=== PATIENT | female | born 1950 | race African-American/Black ===

== ENCOUNTER 2018-05-19 18:05 | Emergency (ER) | payer OTHER, MEDICARE ==
[2018-05-19 18:52] LABS: Hemoglobin 10.3 g/dL (12.0-16.0); Lymphocytes 10 % (21-51); MDiff Complete? YES; Mean Corpuscular HGB CONC 31.9 g/dL (32.0-36.0); Mean Corpuscular Hemoglobin 27.9 pg (27.0-31.0); Mean Corpuscular Volume 87.6 fL (78.0-98.0); Mean Platelet Volume 9.3 fL (7.4-10.4); Monocytes 10 % (0-10); Neutrophil 80 % (42-75); Platelet Count 353 thou/uL (130-400); Platelet Morphology Comment Appears Adequate; RBC Distribution Width 13.4 % (11.5-14.5); Red Blood Cell (RBC) Count 3.68 mill/uL (4.20-5.40); White Blood Cell (WBC) Count 9.2 thou/uL (4.8-10.8)
[2018-05-19 19:01] LABS: ALT (SGPT) 12 U/L (8-55); AST (SGOT) 31 U/L (5-34); Albumin 3.5 g/dL (3.4-4.8); Alkaline Phosphatase 136 U/L (40-150); Anion Gap 16 mmol/L (10-20); BUN (Urea Nitrogen) 7 mg/dL (9.8-20.1); Bilirubin, Total 0.5 mg/dL (0.2-1.2); Calc. Creatinine Clearance 0 mL/min (70-130); Calcium 9.2 mg/dL (7.8-10.44); Carbon Dioxide 21 mmol/L (23-31); Chloride 102 mmol/L (98-107); Estimated GFR-MDRD Greater than 90; Globulin 4.4 g/dL (2.4-3.5); Glucose 108 mg/dL (80-115); Potassium 3.8 mmol/L (3.5-5.1); Protein, Total 7.9 g/dL (6.0-8.3); Sodium 135 mmol/L (136-145)
[2018-05-19 19:14] LABS: Lipase Less than 4 U/L (8-78)
--- NOTE | 2018-05-19 20:32 | RAD ---
CHEST ONE VIEW ABDOMEN TWO VIEWS: 05/19/18 HISTORY: Chest and abdomen pain. FINDINGS: The right cardiac marking partially obscured by ill-defined infiltrate at the right base. Small amou nt of pleural fluid also apparent on the right. Left lung is clear. Mediastinum is midline. No evidence of free subdiaphragmatic gas. Gas and stool throughout the colon and rectum. No different ial air fluid levels or radiopaque foreign bodies. Chronic deformity of the pubic symphysis may be r elated to degenerative changes and/or old trauma. IMPRESSION: Nonspecific bowel gas pattern. Right lung base infiltrate and pleural fluid. Possible pneumonia (could cause abdominal pain. Clinica l correlation regarding other signs and symptoms of right lower lobe pneumonitis is required. POS: RODH
== END 2018-05-19 19:56 | disposition home or self-care (01) ==
LOC: SCSER 18:05
DX: R68.81 Early satiety (principal); R91.8 Other nonspecific abnormal finding of lung field; I10 Essential (primary) hypertension; Z87.891 Personal history of nicotine dependence
CPT/HCPCS: 36415; 74022; 80053; 83605; 83690; 84484; 85025; 93005

== ENCOUNTER 2018-05-22 10:57 | Inpatient (IN) | payer OTHER, MEDICARE ==
[2018-05-22] MEDS ORDERED: Ondansetron PF 4 MG/2 ML Vial ONE (11:40)
[2018-05-22 11:43] LABS: Bilirubin Large (Negative); Blood, Urine Trace (Negative); Clarity Slightly Cloudy (Clear); Glucose, Urine (Dipstick) 100 mg/dL (Negative); Leukocyte Trace (Negative); Nitrite Negative (Negative); Protein, Urine (Dipstick) 100 mg/dL (Neg-Trace); pH, Urine 5.5 (5.0-9.0)
[2018-05-22 11:44] LABS: Specific Gravity, Urine 1.023 (1.002-1.036)
[2018-05-22 11:51] LABS: Bacteria/HPF Rare-Few HPF (None Seen); Hyaline Casts/LPF 0-3 HYALINE CAST LPF (0-3 Hyaline); Other Casts/LPF 0-3 FINELY GRAN LPF (0-3 Hyaline); RBC/HPF 0-3 HPF (0-3)
[2018-05-22 11:52] LABS: WBC/HPF 0-3 HPF (0-3)
[2018-05-22 12:09] LABS: Anisocytosis SLIGHT = 6-15 cells (100X) (0-5/hpf); Band 3 % (5-11); Eosinophils 1 % (0-10); Hemoglobin 11.5 g/dL (12.0-16.0); Lymphocytes 7 % (21-51); MDiff Complete? YES; Mean Corpuscular HGB CONC 32.2 g/dL (32.0-36.0); Mean Corpuscular Hemoglobin 28.4 pg (27.0-31.0); Mean Corpuscular Volume 88.4 fL (78.0-98.0); Mean Platelet Volume 8.1 fL (7.4-10.4); Monocytes 6 % (0-10); Neutrophil 83 % (42-75); Platelet Count 390 thou/uL (130-400); Platelet Morphology Comment Appears Adequate; RBC Distribution Width 13.9 % (11.5-14.5); Red Blood Cell (RBC) Count 4.04 mill/uL (4.20-5.40); Target Cells SLIGHT = 2-5 cells (100X) (0-1/hpf); White Blood Cell (WBC) Count 10.4 thou/uL (4.8-10.8)
[2018-05-22 12:18] LABS: ALT (SGPT) 14 U/L (8-55); AST (SGOT) 30 U/L (5-34); Albumin 3.8 g/dL (3.4-4.8); Alkaline Phosphatase 144 U/L (40-150); Anion Gap 19 mmol/L (10-20); BUN (Urea Nitrogen) 11 mg/dL (9.8-20.1); Bilirubin, Total 0.7 mg/dL (0.2-1.2); Calc. Creatinine Clearance 0 mL/min (70-130); Calcium 9.9 mg/dL (7.8-10.44); Carbon Dioxide 21 mmol/L (23-31); Chloride 101 mmol/L (98-107); Estimated GFR-MDRD 74; Globulin 4.8 g/dL (2.4-3.5); Glucose 95 mg/dL (80-115); Protein, Total 8.6 g/dL (6.0-8.3); Sodium 137 mmol/L (136-145)
[2018-05-22 13:25] LABS: Lipase Less than 4 U/L (8-78)
--- NOTE | 2018-05-22 15:04 | CT ---
CT ABDOMEN AND PELVIS PERFORMED WITH CONTRAST ENHANCEMENT: Date: 05/22/18 HISTORY: Abdominal pain. Fullness. Nausea. History of a bladder infection, for which patient has been placed o n Bactrim. FINDINGS: There is a moderate size right-sided pleural effusion with right lower lobe atelectasis. Liver shows multiple liver masses, some of which measure as much as 4.7 cm in size. The spleen is within normal l imits. Pancreas and gallbladder regions are unremarkable. Right and left adrenal glands, and right and left kidneys are normal in size and appearance. Small hy podensity is seen involving the right kidney and probably represents a cyst. There is an aortocaval node seen directly beneath the head of the pancreas, measuring approximately 1 1.0 mm in size. There is also a node directly anterior to the IVC in the abbey region that measures 1 6.0 mm. There is also a soft tissue mass which appears to represent some mesenteric adenopathy, best seen on axial image 42. One of these areas measures 2.6 cm. There is an area of wall thickening of th e ascending colon near the hepatic flexure, which is very suspicious for a colonic mass, best demonst rated on axial image 42. There is some moderate ascites also noted. CT of pelvis was performed with contrast enhancement. Ascites is noted. Within the midline is a mixed but predominantly low attenuation mass. It measures approximately 13.0 cm in AP dimension and transv ersely measures 8.8 cm. It is mainly midline, but if related to an adnexa, would be of right adnexal origin. There is some soft tissue nodularity along the right hemidiaphragm, along the lateral aspect of the right lobe of the liver, very suspicious for peritoneal seeding. IMPRESSION: 1. Constellation of findings. There are multiple liver masses most compatible with metastatic diseas e. There is a colonic mass involving the right colon near the hepatic flexure and adjacent adenopathy just medial to this, also adenopathy in the aortocaval and more in the periportal or peripancreatic region. There is also evidence of seeding of the peritoneum with nodular masses, best demonstrated al omar the right hemidiaphragm and ascites. All these findings would point to a probable colonic maligna ncy. The one unusual feature is there is a large low attenuation mass within the pelvis measuring 9.0 x 13.0 cm, which could represent some type of peritoneal seeding from colon cancer, but also could p ossibly be related to some type of ovarian malignancy. 2. Right-sided pleural effusion with right lower lobe atelectasis. Findings telephone to Dr. Hamilton. CODE CR. POS: JOSE RAMON
[2018-05-22] MEDS ORDERED: Iopamidol 370 76% 100 ML VIAL ONE (15:43)
[2018-05-22 16:37] VITALS: BMI 28.0
[2018-05-22] MEDS ORDERED: Acetaminophen 325 MG TAB PO PRN (17:10)
[2018-05-22] MEDS ORDERED: Sodium Chloride 0.9% 500 ML IV SCH (17:15)
[2018-05-22] MEDS: Sodium Chloride 0.9% 1,000 ML IV SCH (18:01)
[2018-05-22] MEDS ORDERED: GoLYTELY 4,000 ml Bottle PO SCH (21:00)
--- NOTE | 2018-05-22 22:37 | CON ---
DATE OF CONSULTATION: 05/22/2018 REASON FOR CONSULTATION: Abnormal GI imaging with possible metastatic disease to the liver. CONSULTING PHYSICIAN: Neville Plaza MD. HISTORY OF PRESENT ILLNESS: The patient is a 67-year-old female with a past medical history of hypertension, presenting with complaints of early satiety and anorexia. Approximately 2 weeks ago, her brother was diagnosed with colon cancer and since that time, the patient has had exhibited significant anxiety towards her brother's healthcare and her own. This prompted her to visit her primary care physician who underwent a wellness check and as part of that wellness check had a fecal occult blood test that was positive. She was originally scheduled for colonoscopy for further evaluation of this, but over the course of the last 2 weeks exhibited increased early satiety characterized as the inability to tolerate increasing amounts of food as well as increased anorexia, characterized by decreased appetite. Per patient, she said she lost approximately seven 7 pounds over the last 1 to 2 months in association with this anorexia. Otherwise she denies any nausea, vomiting, fevers, chills, shortness of breath, GI bleeding or change in her bowel habits. Upon admission to the [facility], she was noted to have a CT scan that was concerning for possible metastatic disease and was ultimately admitted to the hospital for further evaluation. REVIEW OF SYSTEMS: A 10-category review of systems was obtained with all responses negative except for the pertinent positives as listed in HPI. PAST MEDICAL HISTORY: As per HPI. PAST SURGICAL HISTORY: None. FAMILY HISTORY: She states that her brother was recently diagnosed with stomach cancer, but denies any history of colon polyps or colon malignancies within the family. SOCIAL HISTORY: Denies tobacco, alcohol, or illicit drug use, but quit smoking approximately 2 weeks ago. OUTPATIENT MEDICATIONS: 1. Amlodipine 5 mg daily. 2. Levofloxacin 750 mg daily. ALLERGIES: NO KNOWN DRUG ALLERGIES. PHYSICAL EXAMINATION: VITAL SIGNS: Temperature 98.2, pulse 111, blood pressure 140/67, respiratory rate 16, saturating 96% on room air. GENERAL: The patient was lying in bed, in no acute distress. Alert and oriented x4. HEENT: Normocephalic, atraumatic. NECK: Supple with no scleral icterus or JVD noted. CARDIOVASCULAR: Tachycardic rate, but regular rhythm. No discernible murmurs, gallops, or rubs. RESPIRATORY: Clear to auscultation bilaterally with no discernible wheezes or rales. ABDOMEN: Normoactive bowel sounds. Soft, nontender, nondistended. EXTREMITIES: No cyanosis, clubbing, or edema. LABORATORY DATA: CBC with a white blood cell count of 10.4, hemoglobin 11.5, hematocrit 35.7, platelets 390. Chemistry with a sodium of 137, potassium 4, chloride 101, CO2 of 21, BUN 11, creatinine 0.92, glucose 95, AST 30, ALT 14, alkaline phosphatase 144, total bilirubin 0.7, albumin 3.8. IMAGING DATA: CT of the abdomen and pelvis was obtained on May 22, 2018, which showed a moderate-sized right-sided pleural effusion. The liver also showed multiple metastases with an enlarged aortocaval lymph node and a soft tissue mass, which could represent mesenteric adenopathy. Colonic thickening was seen in the ascending colon at the approximate location of the hepatic flexure and this was associated with moderate ascites as well as peritoneal contour irregularities concerning for possible peritoneal seeding. ASSESSMENT AND PLAN: The patient is a 67-year-old female with past medical history of hypertension, presenting with complaints of early satiety and abnormal gastrointestinal imaging concerning for metastatic disease from a gastrointestinal malignancy. Metastatic disease from unknown primary. The patient is presenting with a 2-week history of increased early satiety, anorexia, and a recent family history for the diagnosis of gastric cancer, where her brother was diagnosed again weeks ago. Upon evaluation in the ER, she was noted to have no significant serological abnormalities, but the CT of the abdomen and pelvis showed multiple metastases within the liver, possible peritoneal seeding and within the surrounding lymph nodes again consistent with metastatic disease. At this time, there is no true etiology for these metastases, but with the increased thickening of the ascending colon around the hepatic flexure, a colonic neoplasm is likely. However, given her recent family history of gastric cancer, this cannot be ruled out at this time either. RECOMMENDATIONS: 1. We would place the patient on a clear liquid diet with GoLYTELY prep in anticipation for procedures tomorrow. 2. We would make the patient n.p.o. at midnight in preparation for procedures tomorrow. 3. We will plan for both EGD and colonoscopy tomorrow for intraluminal evaluation of a possible GI malignancy. 4. Further recommendations to follow endoscopic intervention. 5. We will continue to follow, please call with any questions. Job ID: [id number]
--- NOTE | 2018-05-23 00:28 | HP ---
CHIEF COMPLAINT: Early satiety. HISTORY OF PRESENT ILLNESS: This patient is a 67-year-old female, who has a history of some mild hypertension, but otherwise no significant past medical history, who presented to the [facility] Emergency Room. The patient has had some problems with early satiety over the last several weeks, getting to the point where she has had no ability to eat. She has had some nausea and reports that she has had about a 7-pound weight loss over those last couple of weeks. She has seen her PCP and was originally diagnosed with urinary tract infection. Subsequently followed up and was thought she had some pneumonia. Today, she presented to the [facility] Emergency Room where she had workup including a CT scan revealing multiple lesions within the liver and the pelvis as well as the diaphragm. The patient reports that she has never had a screening colonoscopy, although she has been getting a mammogram. She also reports that she had previously had Hemoccult screening and recently had a followup Hemoccult straining, which turned out to be positive and there was anticipation of her having a colonoscopy next week. REVIEW OF SYSTEMS: All other systems were reviewed and all pertinent positives and negatives noted in the history of present illness. Specifically, the patient does report that she has had no abdominal pain and she has had fairly regular bowel movement in spite of not being able to eat much at all. PAST MEDICAL HISTORY: Hypertension. PAST SURGICAL HISTORY: None. FAMILY HISTORY: She has a brother who had stomach cancer, a brother who had lung cancer, a brother who had leukemia, a sister with breast cancer, and a mother with ovarian cancer. SOCIAL HISTORY: The patient is a nonsmoker, although she was formally a smoker , she only quit about 2 weeks ago, nondrinker, nondrug user. She is . She is full code and her would be her surrogate decision maker. ALLERGIES: NONE. CURRENT MEDICATIONS: 1. Levaquin 750 mg p.o. daily. 2. Norvasc 5 mg p.o. daily. PHYSICAL EXAMINATION: VITAL SIGNS: Temperature is 98.4, pulse 117, blood pressure 139/81, respirations 18, and O2 saturation 94% on room air. GENERAL APPEARANCE: Age-appropriate female, in no distress. She is awake, alert, oriented, pleasant, and cooperative. HEENT: The patient has PERRL. She has no OP lesion. She has very dry oral mucosa with very dry secretions. HEART: Tachycardic and hyperdynamic, but no murmurs. LUNGS: Clear to auscultation bilaterally with good chest wall expansion and air exchange. ABDOMEN: Soft, nontender, and nondistended. Positive bowel sounds. No masses. No organomegaly. EXTREMITIES: Have no cyanosis, clubbing, or edema. SKIN: Warm and dry. NEUROLOGIC: The patient appears to be fully intact with no focal deficits. LABORATORY DATA AND DIAGNOSTIC STUDIES: White count 10.4, hemoglobin 11.5, platelets 390, 83 neutrophils, 3% bands, 7% lymphocytes. Sodium 137, potassium 4.0, chloride 102, CO2 of 21, BUN 11, creatinine 0.92, and glucose 95. Lactic acid 1.4, AST 30, ALT is 14, alkaline phosphatase 144, lipase less than 4. Urinalysis shows protein, glucose, ketones, large bilirubin, trace leukocyte esterase. CT abdomen shows constellation findings with multiple liver masses, most compatible with metastatic disease, colonic mass involving the right colon near the hepatic flexure, and adjacent adenopathy just medial to this, also adenopathy in the aortocaval and more in the perioral and peripancreatic region, evidence of seeding of the peritoneum with nodular masses best demonstrated among the right hemidiaphragm and ascites all consistent with probable colonic malignancy. There is also a large low-attenuation mass within the pelvis measuring 9 x 13 cm, which could represent some type of peritoneal seeding from colon cancer, but also could possibly be related to an ovarian malignancy, right-sided pleural effusion with right lower lobe atelectasis. IMPRESSION AND PLAN: 1. Dehydration. The patient received some fluid resuscitation. 2. Abdominal mass. The patient has evidence of a new neoplastic process within the abdomen and pelvis, evidence concerning for the possibility of colon cancer. The patient will need endoscopy given her early satiety, may need upper endoscopy as well as a lower endoscopy. We will keep her n.p.o. after midnight and defer to GI for further recommendations. 3. Hypertension. Continue with her usual medications. Job ID: [id number] [facility]
[2018-05-23] MEDS: Sodium Chloride 0.9% 1,000 ML IV SCH ×2 (03:40→17:22)
[2018-05-23] MEDS: Amlodipine 5 MG TAB PO SCH ×2 (08:45→12:24)
[2018-05-23] MEDS ORDERED: Promethazine HCl 25 MG/ML VIAL IM PRN (10:40)
[2018-05-23] MEDS ORDERED: Ondansetron HCl/PF 4 MG/2 ML Vial IVP PRN (10:40)
[2018-05-23] MEDS ORDERED: Promethazine HCl 25 MG/ML VIAL SLOW IVP PRN (10:40)
--- NOTE | 2018-05-23 11:00 | OP ---
DATE OF PROCEDURE: 05/23/2018 PROCEDURE PERFORMED: Esophagogastroduodenoscopy (diagnostic), colonoscopy with biopsy and submucosal injection. INDICATION FOR PROCEDURE: Abnormal GI imaging showing metastatic disease of unknown primary. DESCRIPTION OF PROCEDURE: After the risks and benefits of the procedures were explained to the patient including risks of bleeding, infection, perforation, reactions to anesthesia, aspiration and/or pain, informed consent was obtained. The patient was then taken to the endoscopy suite, where deep sedation was administered via propofol and anesthesia support. Once adequate sedation was achieved, the standard gastroscope was introduced into the mouth with intubation of the esophagus, stomach, and the proximal small intestines with the findings listed below. The patient tolerated this portion of the procedure well with no immediate perioperative complications. Upon conclusion of this phase of the procedure, all equipment was removed from the patient and the bed was rotated to 180 degrees in anticipation of the colonoscopy. An external digital rectal exam was then performed followed by introduction of the standard colonoscope, which was then advanced to the hepatic flexure with further progress impeded by a near obstructive mass that was unable to be traversed with the colonoscope. The quality of the prep was good with a mild amount of adherent stool coating the ma of the colon. The patient tolerated the procedure well with no immediate perioperative complications with this phase of the procedure. Upon conclusion of this, all equipment was removed from the patient and the patient was transferred to PACU in satisfactory condition. EGD FINDINGS: Esophagus: Normal-appearing mucosa was seen in the proximal, mid, and distal esophagus. There was no evidence of erosions, ulcerations, mass, lesions, or active/recent bleeding. Stomach: Normal-appearing mucosa was seen in the gastric cardia, fundus, body, antrum, greater curvature, and incisura. There was no evidence of erosions, ulcerations, mass, lesions, or active/recent bleeding. Duodenum: Normal-appearing mucosa was seen in both the duodenal bulb and second portion of the duodenum. There was no evidence of erosions, ulcerations, mass, lesions, or active/recent bleeding. IMPRESSION: Normal upper endoscopy. COLONOSCOPY FINDINGS: Digital rectal exam, normal external examination. Colon findings: The quality of the prep was good with a moderate amount of adherent stool seen throughout the entire colon, which may have limited visualization somewhat, but was able to be adequately irrigated and suctioned of the mucosa visualized. A large colonic mass was seen at approximately the hepatic flexure that occupied approximately 90% to 95% of the colonic lumen. This mass was unable to be traversed with the standard colonoscope, so further evaluation of the proximal colon was not able to be achieved today. Multiple biopsies were then taken of this mass and placed in a specimen jar for evaluation. A submucosal injection x3 was then placed along the distal end of the mass for further reference for possible surgical intervention. The remaining mucosa seen in the transverse, descending, and sigmoid colons was normal. A moderate amount of small-mouthed diverticula were seen in the distal descending colon and sigmoid colon, but did not exhibit any evidence of active/recent bleeding or colonic narrowing. Normal-appearing mucosa was then seen in the rectum with normal findings on rectal retroflexion. IMPRESSION: 1. A large near obstructive colonic mass was seen at the hepatic flexure occupying 90% to 95% of the colonic lumen, status post multiple biopsies and tattoo placement. 2. [id number] left-sided diverticulosis. RECOMMENDATIONS: 1. We will follow up on the biopsy results with further care guided by pathology report. 2. Would consult Oncology Service for evaluation of this patient with a probable colonic adenocarcinoma primary with metastatic disease. 3. We will place the patient on a full liquid diet for the time being given the near obstructive mass. 4. The patient may need a General Surgery consult based on Oncology's decision to proceed with further therapies as the patient may need a debulking procedure to prevent colonic obstruction (although not currently obstructed). 5. Would consider placing the patient on a stool softener and laxative to help promote movement of stool passes near obstructive mass. We will sign off at this time with further care guided by the pathology report. Please call with any additional questions. Job ID: [id number]
[2018-05-23] MEDS ORDERED: ISOVUE-370 76%-LOCM 1 ML ONE (11:58)
--- NOTE | 2018-05-23 14:01 | CT ---
FExam: Chest CT with contrast HISTORY: Metastatic disease to the liver. COMPARISON: None Correlation: Abdomen pelvis CT 05/22/2018 FINDINGS: No mediastinal mass, lymphadenopathy or hematoma. There is complex fluid attenuation the toro bcarinal region which may be contiguous with the adjacent fluid in the right pleural space. Heart siz e is within normal limits. No symmetric and pericardial fluid. The thoracic aorta and upper abdominal aorta have a normal caliber. No periaortic fat stranding Moderate complex right-sided pleural effusion with consolidation in the right lower lobe likely due t o atelectasis, aspiration or pneumonia. Minimal atelectatic changes in the left lower lobe. No suspic ious masses or nodules in the left or right upper lobe. Incidental blebs/bullae are noted in both upp er lobes. Trachea and central bronchi are patent No axillary lymphadenopathy Multiple hepatic masses as well as mesenteric seeding is once again demonstrated an incompletely eval uated. There is evidence of ascites. No lytic or blastic lesions in the osseous structures. IMPRESSION: Complex right pleural effusion with adjacent lung parenchymal changes as described above. Fluid tracks along the posterior mediastinum is noted in the subcarinal region.
[2018-05-23] MEDS ORDERED: PROPOFOL 200 MG/20 ML VIAL ONE (15:17)
--- NOTE | 2018-05-23 17:11 | PDOC.PN ---
- Subjective Encounter Start Date: 05/23/18 Encounter Start Time: 16:57 Patient lying in bed, she denies chest pain, shortness of breath, abdominal pain , nausea or vomiting. She is tolerating liquid diet for now without complaints. - Objective Resuscitation Status - Order Detail: 05/22/18 17:10 Resuscitation Status Routine Resuscitation Status: FULL: Full Resuscitation MAR Reviewed: Yes Vital Signs & Weight: Vital Signs (12 hours) Temp Pulse Resp BP BP Pulse Ox 05/23/18 15:25 98.2 F 104 H 16 123/66 93 L 05/23/18 14:33 98.0 F 118 H 16 130/70 96 05/23/18 14:04 135/80 05/23/18 13:29 97.6 F 106 H 16 163/78 H 97 05/23/18 12:24 99 143/82 H 05/23/18 12:20 98.0 F 99 16 143/82 H 98 05/23/18 11:31 98.1 F 97 16 139/67 97 05/23/18 11:21 98.2 F 99 16 143/68 H 95 05/23/18 08:00 98.0 F 100 16 141/68 H 94 L Weight Admit Weight 168 lb 4 oz Weight 168 lb 4 oz I&O: 05/22/18 05/23/18 05/24/18 06:59 06:59 06:59 Intake Total 8516 Balance 8516 Result Diagrams: 05/22/18 11:50 05/22/18 11:50 Radiology Reviewed by me: Yes Phys Exam - Physical Examination Constitutional: NAD HEENT: PERRLA, oral pharynx no lesions Neck: supple, full ROM Respiratory: no wheezing, no rales Cardiovascular: RRR, no significant murmur Gastrointestinal: soft, positive bowel sounds Musculoskeletal: no edema, pulses present Neurological: moves all 4 limbs Psychiatric: normal affect, A&O x 3 Skin: no rash, cap refill <2 seconds Dx/Plan (1) Abdominal mass Code(s): R19.00 - INTRA-ABD AND PELVIC SWELLING, MASS AND LUMP, UNSP SITE Status: Acute (2) Hypertension Code(s): I10 - ESSENTIAL (PRIMARY) HYPERTENSION Status: Acute - Plan cont current plan of care * Await biopsies * Oncology following and plan to consult general surgery * Continue home medication amlodipine and monitor vitals * Supportive management for now * She is tolerating liquid diet
--- NOTE | 2018-05-23 17:53 | CON ---
DATE OF CONSULTATION: REASON FOR CONSULTATION: Colon mass. HISTORY OF PRESENT ILLNESS: Ms. Zhang is a pleasant 67-year-old female, who has presented to the emergency room with nausea and weight loss. She also had some pain with urination. In the emergency room, a CT of the abdomen and pelvis was performed. There was a moderate right-sided pleural effusion with right lower lobe atelectasis. There were multiple liver lesions consistent with metastatic disease, the largest measuring 4.7 cm. There was a possible colonic mass near the hepatic flexure. Ascites was noted. There was a low-attenuation mass measuring 13 cm x 8.8 cm in the pelvis was midline, but possibly of right adnexal origin. She was admitted for further workup. GI performed a colonoscopy and EGD today. Her EGD was normal. Her colonoscopy showed a large colonic mass at the hepatic flexure that occupies 90% to 95% of the lumen. Biopsies were taken. We were asked to see the patient regarding the pelvic mass. The patient has a family history of GI tract cancers and ovarian cancer. Her brother was diagnosed with stomach cancer and is currently hospitalized in [place]. Her mother of metastatic ovarian cancer at the age of 87. She states she has pelvic pain when her bladder is full; relieved after voiding and returns once her bladder is full. UA showed no bacteria, but trace leukocyte esterase and bilirubin. She denies any abdominal pain at this time. No chest pain or shortness of breath. PAST MEDICAL HISTORY: Hypertension. PAST SURGICAL HISTORY: None. ALLERGIES: NO KNOWN DRUG ALLERGIES. HOME MEDICATIONS: Norvasc 5 mg daily. FAMILY HISTORY: Brother with stomach cancer. Another brother with lung cancer. She had a brother, who had leukemia. She had a sister with breast cancer in her 60s and a mother, who from ovarian cancer at the age of 87. SOCIAL HISTORY: The patient has a 50-pack year history of smoking, quit 2 weeks ago. No alcohol or illicit drug use. . REVIEW OF SYSTEMS: A 10-point review of systems is negative, except for noted in HPI. PHYSICAL EXAMINATION: VITAL SIGNS: Temperature is 98.2, pulse is 104, respiratory rate 16, blood pressure is 123/66. She is 96% on room air. GENERAL: Well-developed, well-nourished female, in no acute distress. HEENT: Normocephalic and atraumatic. Pupils are equal and reactive to light. NECK: Supple. CV: Regular rate and rhythm. LUNGS: Clear. ABDOMEN: Soft and nontender. Bowel sounds are positive. EXTREMITIES: No clubbing, cyanosis, or edema. SKIN: No rash. HEMATOLOGIC: No petechiae or purpura. NEUROLOGIC: Nonfocal. PSYCHIATRIC: The patient is alert, oriented, and appropriate. PERTINENT LABORATORY DATA AND X-RAYS: Current WBCs 10.4, hemoglobin 11.5, hematocrit 35.7, platelet count is 390,000. She has 83% neutrophils, 3% bands, 7% lymphocytes. Sodium is 137, potassium 4.0, chloride 101, CO2 is 21, BUN is 11, creatinine 0.92, lactic acid is 1.4, calcium 9.9. Total bilirubin is 0.7, AST is 30, ALT is 14, alkaline phosphatase is 144. Serum total protein is 8.6, albumin 3.2, and globulin 4.8. Radiology per HPI. ASSESSMENT: 1. Near obstructing colon mass with liver mets. 2. Large pelvic mass. DISCUSSION: The patient's biopsies on her colon mass are currently pending and likely consistent with adenocarcinoma. We need a biopsy of her pelvic mass to rule out a second primary. I have spoke with Dr. Vernon, who does not feel that she needs a colostomy and/or surgery at this time. He will put a MediPort in tomorrow. Plan a CT-guided biopsy of the pelvic mass. Further recommendations will be based on biopsy results. Thank you for the consult. Job ID: [id number] MTDD
[2018-05-24] MEDS: Sodium Chloride 0.9% 1,000 ML IV SCH ×4 (03:30→22:55)
[2018-05-24 07:56] LABS: INR-International Normal Ratio 1.6; PTT 44.4 SEC (22.9-36.1); Prothrombin Time 18.7 SEC (12.0-14.7)
[2018-05-24] MEDS: Amlodipine 5 MG TAB PO SCH (08:02)
[2018-05-24] MEDS ORDERED: Sodium Bicarbonate 2.5 MEQ/5 ML VIAL ONE (10:01)
[2018-05-24] MEDS ORDERED: Fentanyl 100 MCG/2 ML VIAL ONE ×2 (10:02→13:50)
[2018-05-24] MEDS ORDERED: Midazolam HCl 2 mg/2 ml Vial ONE (10:02)
--- NOTE | 2018-05-24 11:58 | CT ---
FCT-guided pelvic mass biopsy. HISTORY: Cancer with malignant ascites CT-guided pelvic mass biopsy. Informed consent was obtained from the patient. The pelvic mass was localized using CT guidance. The overlying skin was prepped and draped in the usual sterile manner. A 1% lidocaine solution was used t o anesthetize the overlying soft tissues. A small dermatotomy was made. An outer 17-gauge coaxial nee dle was placed into the peritoneal cavity. Initial access resulted in yellowish ascitic fluid being a ccessed. Approximately 15 mL of this was removed and sent for pathologic evaluation. Subsequently the coaxial outer needle was placed into the pelvic mass a total of 5 -3.3 cm 18-gauge core biopsies obt ained. Specimen sent to pathology. Initial evaluation suggested adequate tissue for confirmation of d iagnosis. IMPRESSION: Successful CT-guided pelvic mass biopsy.
[2018-05-24] MEDS ORDERED: Propofol 500 MG/50 ML VIAL ONE (13:50)
[2018-05-24] MEDS ORDERED: Lidocaine 1% (PF) 30 ML VIAL ONE (13:55)
[2018-05-24] MEDS ORDERED: Bupivacaine/Epinephrine 0.25% 30 ML VIAL ONE (13:55)
[2018-05-24] MEDS ORDERED: PROPOFOL 200 MG/20 ML VIAL ONE (13:55)
[2018-05-24] MEDS ORDERED: Lidocaine 2% Jelly 5 ML TUBE ONE (14:23)
[2018-05-24] MEDS ORDERED: Promethazine HCl 25 MG/ML VIAL SLOW IVP PRN (15:06)
[2018-05-24] MEDS ORDERED: Ondansetron HCl/PF 4 MG/2 ML Vial IVP PRN (15:06)
[2018-05-24] MEDS ORDERED: Promethazine HCl 25 MG/ML VIAL IM PRN (15:06)
--- NOTE | 2018-05-24 15:36 | RAD ---
FExam: Chest one view HISTORY:Status post Mediport catheter placement Comparison: 05/19/2018 FINDINGS: Cardiac silhouette:Enlarged Pulmonary vessels: Normal Costophrenic angles: Pleural and parenchymal changes in the right lung base. Trace left-sided effusio n. LUNGS: Atelectasis or airspace disease in the right lower lobe. Pneumothorax: Right-sided Mediport catheter with the distal tip projecting over the superior vena cav a. No pneumothorax. Osseous abnormalities: None IMPRESSION: 1. Right-sided Mediport catheter as above. No pneumothorax 2. Bibasilar pleural effusions, right greater than left. Associated lung parenchymal changes in the r ight lung base may be due to atelectasis, pneumonia. Continued surveillance to resolution.
--- NOTE | 2018-05-24 16:33 | PDOC.PN ---
- Subjective Encounter Start Date: 05/24/18 Encounter Start Time: 08:30 Patient seen and examined for Colon/Pelvic mass. Feels the same. No fever/ chills. No new complaints. No overnight events - Objective Resuscitation Status - Order Detail: 05/22/18 17:10 Resuscitation Status Routine Resuscitation Status: FULL: Full Resuscitation MAR Reviewed: Yes Vital Signs & Weight: Vital Signs (12 hours) Temp Pulse Resp BP Pulse Ox 05/24/18 08:03 98.0 F 92 16 119/75 97 05/24/18 08:02 99 05/24/18 08:00 97 Weight Admit Weight 168 lb 4 oz Weight 168 lb 4 oz I&O: 05/23/18 05/24/18 05/25/18 06:59 06:59 06:59 Intake Total 8516 1940 Balance 8516 1940 Result Diagrams: 05/22/18 11:50 05/22/18 11:50 Phys Exam - Physical Examination Constitutional: NAD Respiratory: no wheezing, no rhonchi Cardiovascular: RRR, no rub Gastrointestinal: soft, non-tender, positive bowel sounds Musculoskeletal: no edema Neurological: moves all 4 limbs Dx/Plan - Plan DVT proph w/SCDs 1. Colon mass/Pelvic mass 2. HTN 3. Dehydation/N/V 4. Diverticulosis 5. Chronic Anemia PLAN: Mediport and CT guided biopsys of Pelvic mass Reduce IVF AM labs Cont other meds as below Review of Systems - Review of Systems Respiratory: negative: Cough, Dry, Shortness of Breath, Hemoptysis, SOB with Excertion, Pleuritic Pain, Sputum, Wheezing Cardiovascular: negative: chest pain, palpitations, orthopnea, paroxysmal nocturnal dyspnea, edema, light headedness, other - Medications/Allergies Allergies/Adverse Reactions: Allergies Allergy/AdvReac Type Severity Reaction Status Date / Time No Known Allergies Allergy Unverified 05/22/18 16:25 Medications: Current Medications Acetaminophen (Tylenol) 650 mg PO Q4H PRN PRN Reason: Headache/Fever/Mild Pain (1-3) Amlodipine Besylate (Norvasc) 5 mg PO DAILY BHARATHI Last Admin: 05/24/18 08:02 Dose: 5 mg Fentanyl (Pacu-Sublimaze) 50 mcg SLOW IVP Q10MIN PRN PRN Reason: Moderate to Severe Pain (6-10) Stop: 05/24/18 18:07 Sodium Chloride (Normal Saline 0.9%) 1,000 mls @ 50 mls/hr IV .Q20H BHARATHI Ondansetron HCl (Pacu-Zofran) 4 mg IVP ONE PRN PRN Reason: Nausea/Vomiting Stop: 05/24/18 18:06 Promethazine HCl (Pacu-Phenergan) 6.25 mg SLOW IVP ONE PRN PRN Reason: Nausea/Vomiting Stop: 05/24/18 18:06 Promethazine HCl (Pacu-Phenergan) 6.25 mg IM ONE PRN PRN Reason: Nausea/Vomiting Stop: 05/24/18 18:06
--- NOTE | 2018-05-24 19:04 | CON ---
DATE OF CONSULTATION: 05/24/2018 CHIEF COMPLAINT: Metastatic colon cancer. HISTORY OF PRESENT ILLNESS: The patient is a 67-year-old female. She presented to the emergency room complaining of malaise with nausea and weight loss. She was admitted from the emergency room to the hospitalist service on May 22. CT scan obtained in the emergency room revealed what appeared to be a near obstructing lesion near the hepatic flexure of the colon as well as innumerable large metastatic lesions to the colon. It also showed changes potentially consistent with carcinomatosis involving the omentum and finally a large mass within the pelvis measuring 13 x 9 cm. There was also noted to be ascites and pleural effusion. Gastroenterology was consulted and Dr. Cortes performed a colonoscopy revealing a lesion within the proximal transverse colon consistent with a near obstructing colon cancer. Biopsies were obtained and are still pending. Her CEA level is noted to be elevated at 9.8. Her CA-125 is elevated at 300.7. Surprisingly, she is not anemic with a hemoglobin of 11.5. I am consulted for my opinion regarding her management. She tells me that she has not had obstructive symptoms. She is able to eat and have a bowel movement. She does note anorexia however. PAST MEDICAL HISTORY: Hypertension. PAST SURGICAL HISTORY: None. ALLERGIES: NO KNOWN DRUG ALLERGIES. MEDICATIONS: Norvasc. PRIMARY CARE PHYSICIAN: Dr. Johnson in [place]. PERSONAL AND SOCIAL HISTORY: She is with 3 children. 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 She smoked a pack per day until recently, but quit a couple of weeks ago. She denies alcohol use. REVIEW OF SYSTEMS: Negative other than as mentioned above. FAMILY HISTORY: Noncontributory. PHYSICAL EXAMINATION: VITAL SIGNS: She is afebrile, pulse is in the 90s and regular, and blood pressure is 120/75. GENERAL: A well-developed, well-nourished, thin black female, resting in bed, in no acute distress. She is alert and oriented x3. HEAD, EYES, EARS, NOSE, AND THROAT: Unremarkable. NECK: Supple without mass or tenderness. LUNGS: Clear to auscultation throughout. CARDIAC: Regular rate and rhythm without murmur. ABDOMEN: Mildly distended. It is difficult to examine, but I cannot discern any definite masses. She has already had a biopsy of her pelvic mass and she is a little tender in that area, which makes examination incomplete. EXTREMITIES: Unremarkable. LABORATORY DATA: Labs are as mentioned above. Her chemistry profile is essentially normal. ASSESSMENT: The patient with what appears to be metastatic colon cancer. There is a large pelvic mass that could be an ovarian primary or metastatic disease from her colon. This has been biopsied and pathology is pending regarding this. Since she is not obstructed in regard to her colon cancer now, I would recommend placing the MediPort for initiation of chemotherapy. Hopefully, the tumor within the colon will shrink along with the tumors within the liver, which would potentially prevent progressing to obstruction that would require colostomy creation. I have discussed this in detail with the patient as well as her family. MediPort will be placed today to initiate chemotherapy. Job ID: [id number]
--- NOTE | 2018-05-25 00:17 | OP ---
DATE OF PROCEDURE: 05/24/2018 PREOPERATIVE DIAGNOSES: Metastatic colon cancer, large pelvic mass of uncertain significance. POSTOPERATIVE DIAGNOSES: Metastatic colon cancer, large pelvic mass of uncertain significance. OPERATION PERFORMED: Placement of right subclavian low-profile power compatible MediPort. ANESTHESIA: Total intravenous anesthesia with local using 0.25% Marcaine with epinephrine. INDICATIONS FOR PROCEDURE: The patient is a 67-year-old black female, who was recently diagnosed with advanced metastatic colon cancer. This is a near obstructing, but not completely obstructing lesion within her colon. MediPort is placed for chemotherapy administration, hoping to avoid colon surgery if it is not mandatory at this time. DESCRIPTION OF OPERATION: Informed consent was obtained. The patient was taken to the operating room where total intravenous anesthesia was obtained with the patient in supine position. Right periclavicular area was prepped with ChloraPrep and draped in sterile fashion. Local anesthetic was infiltrated and a large-gauge needle was passed under the clavicle in the subclavian vein. Guidewire was passed through the needle and fluoroscopically confirmed to enter the superior vena cava. Additional local anesthetic was infiltrated and transverse incision was created based on needle insertion site. A subcutaneous pocket was dissected inferiorly. Introducer dilator was passed over the guidewire under fluoroscopic guidance. The guidewire and dilator were removed, and the catheter was passed through the introducer. The tip of the catheter was positioned at the atriocaval junction and the catheter was trimmed to the appropriate length and secured to the locking hub of the MediPort. The port was then placed in the subcutaneous pocket where it was secured to the pectoral fascia with 2 interrupted sutures of 3-0 Prolene. The incision was then closed in layers with 3-0 and 4-0 Monocryl. Additional local anesthetic was infiltrated. The port was cannulated with a Tapia needle and it aspirated blood freely and was flushed with heparinized saline. Dermabond was placed externally on the skin incision. There were no complications. Blood loss was negligible. The patient tolerated the procedure well and was taken to recovery room in stable condition. FINDINGS: A low-profile power compatible MediPort was selected and placed uneventfully into the right subclavian vein. There were no complications and essentially no blood loss. The patient tolerated the procedure well. Job ID: [id number]
[2018-05-25 04:45] LABS: #Eosinphils 0.1 thou/uL (0.0-0.7); #Lymphocytes 1.1 thou/uL (1.20-3.40); #Monocytes 0.9 thou/uL (0.11-0.59); #Neutrophils 7.4 thou/uL (1.40-6.50); %Basophils 0.2 % (0.0-1.0); %Lymphocytes 11.1 % (21.0-51.0); %Monocytes 9.8 % (0.0-10.0); %Neutrophils 77.9 % (42.0-75.0); Hemoglobin 9.1 g/dL (12.0-16.0); Mean Corpuscular Hemoglobin 29.1 pg (27.0-31.0); Mean Corpuscular Volume 90.9 fL (78.0-98.0); Mean Platelet Volume 9.5 fL (7.4-10.4); Platelet Count 323 thou/uL (130-400); Red Blood Cell (RBC) Count 3.13 mill/uL (4.20-5.40); White Blood Cell (WBC) Count 9.6 thou/uL (4.8-10.8)
[2018-05-25 05:08] LABS: Anion Gap 13 mmol/L (10-20); BUN (Urea Nitrogen) 5 mg/dL (9.8-20.1); Calc. Creatinine Clearance 121 mL/min (70-130); Calcium 8.5 mg/dL (7.8-10.44); Carbon Dioxide 23 mmol/L (23-31); Chloride 106 mmol/L (98-107); Estimated GFR-MDRD Greater than 90; Glucose 81 mg/dL (80-115); Magnesium 2.3 mg/dL (1.6-2.6); Potassium 3.6 mmol/L (3.5-5.1); Sodium 138 mmol/L (136-145)
--- NOTE | 2018-05-25 09:03 | PRG ---
DATE OF SERVICE: 05/25/2018 SUBJECTIVE: Ms. Zhang is postoperative day #1 from right subclavian MediPort placement. She has no complaints regarding this. She notes mild appropriate tenderness at the operative site. She has resumed her diet and is appropriately ambulatory and functional. OBJECTIVE: VITAL SIGNS: On examination, she is afebrile. Vital signs are within normal limits. Her operative site is healing nicely. Dermabond is intact. There is minimal tenderness and certainly, no swelling or concerning abnormality. ASSESSMENT AND PLAN: She is stable following her MediPort placement. She is certainly stable from a surgery standpoint for discharge. As she will be initiating chemotherapy in the near future, she can follow up with myself on a p.r.n. basis. I have spoken with her regarding the signs of potential colon obstruction or further problems with her colon cancer that would mandate further surgery. It is still my hope that her colon cancer will respond to the chemotherapy and avoid any obstructive phenomenon for now. Job ID: [id number]
[2018-05-25] MEDS: Amlodipine 5 MG TAB PO SCH (09:28)
[2018-05-25 09:48] VITALS: BP 127/73; TEMP 98
[2018-05-25] MEDS ORDERED: Ondansetron PF 4 MG/2 ML Vial IVP PRN (11:17)
--- NOTE | 2018-05-25 13:43 | CT ---
"PRELIMINARY REPORT" CT-guided pelvic mass biopsy. HISTORY: Cancer with malignant ascites CT-guided pelvic mass biopsy. Informed consent was obtained from the patient. The pelvic mass was localized using CT guidance. The overlying skin was prepped and draped in the usual sterile manner. A 1% lidocaine solution was used t o anesthetize the overlying soft tissues. A small dermatotomy was made. An outer 17-gauge coaxial nee dle was placed into the peritoneal cavity. Initial access resulted in yellowish ascitic fluid being a ccessed. Approximately 15 mL of this was removed and sent for pathologic evaluation. Subsequently the coaxial outer needle was placed into the pelvic mass a total of 5 -3.3 cm 18-gauge core biopsies obt ained. Specimen sent to pathology. Initial evaluation suggested adequate tissue for confirmation of d iagnosis. IMPRESSION: Successful CT-guided pelvic mass biopsy. Transcribed Date/Time: 05/25/2018 1:43 PM
--- NOTE | 2018-05-25 22:02 | DIS ---
DATE OF ADMISSION: 05/23/2018 DATE OF DISCHARGE: 05/25/2018 DISCHARGE DISPOSITION: Home. FOLLOWUP VISITS: 1. Follow up with primary care physician, Dr. Live in 1 week. 2. Follow up with Dr. Johan Gusman on 05/30/2018 at 11:00 a.m. ALLERGIES: NO KNOWN DRUG ALLERGIES. THE PATIENT WAS SEEN AND EXAMINED ON THE DAY OF DISCHARGE. DENIES ANY NEW COMPLAINTS. NO CHEST PAIN, SHORTNESS OF BREATH, OR PALPITATIONS. DISCHARGE MEDICATIONS: 1. Zofran as needed. 2. Tylenol No.3 as needed. 3. Amlodipine 5 mg daily was resumed. INPATIENT CONSULTANTS: 1. General Surgery, Dr. Vernon. 2. Oncology, Dr. Gusman. BRIEF HOSPITAL COURSE: The patient is a 67-year-old female, who presented to the emergency room with nausea, weight loss, and early satiety. She underwent a CT scan in the emergency room that showed multiple lesions within the liver as well as a pelvic mass. Please refer to the history and physical for further details. The patient was admitted to the hospital with a diagnosis of suspicious malignancy. She was seen by multiple consultants including Gastroenterology, Oncology, as well as General Surgery. She underwent EGD and colonoscopy on 05/23/2018 that showed a large near obstructive colonic mass occupying 90% to 95% of the colonic lumen. Biopsies were obtained. The pathology report is pending at this time. She also underwent CT-guided biopsy of the pelvic mass. MediPort has been placed. She has been cleared by consultants for discharge. FINAL DIAGNOSES: 1. Colon mass suspicious for colonic malignancy. 2. Pelvic mass, status post biopsy. 3. Nausea, vomiting, dehydration with early satiety. 4. Diverticulosis. 5. Chronic anemia. Hemoglobin on the day of discharge was 9.1. Significant labs CEA was 9.7. CA-125 was 300. PLAN: Plan of care was discussed with the patient in detail. She stated understanding. Job ID: [id number]
== END 2018-05-25 12:45 | disposition home or self-care (01) | DRG 375 ==
LOC: SCSER 10:57 → ONC 14:25 → INTOOBSV 14:25 → EEVIPCON 05-23 15:57 → OBSVTOIN 05-23 15:57
PROVIDERS: ADMIT Internal Medicine; ATTEND Internal Medicine
PROC: 0DJ08ZZ Inspection of Upper Intestinal Tract, Via Natural or Artificial Opening Endoscopic (ICD-10-PCS; principal; 2018-05-23)
PROC: 0DBL8ZX Excision of Transverse Colon, Via Natural or Artificial Opening Endoscopic, Diagnostic (ICD-10-PCS; 2018-05-23)
PROC: 0JBC3ZX Excision of Pelvic Region Subcutaneous Tissue and Fascia, Percutaneous Approach, Diagnostic (ICD-10-PCS; 2018-05-24)
PROC: 0W9G3ZX Drainage of Peritoneal Cavity, Percutaneous Approach, Diagnostic (ICD-10-PCS; 2018-05-24)
PROC: 02HV33Z Insertion of Infusion Device into Superior Vena Cava, Percutaneous Approach (ICD-10-PCS; 2018-05-25)
PROC: B518YZA Fluoroscopy of Superior Vena Cava using Other Contrast, Guidance (ICD-10-PCS; 2018-05-25)
PROC: 0JH63WZ Insertion of Totally Implantable Vascular Access Device into Chest Subcutaneous Tissue and Fascia, Percutaneous Approach (ICD-10-PCS; 2018-05-25)
DX: C18.9 Malignant neoplasm of colon, unspecified (principal); R18.8 Other ascites; J90 Pleural effusion, not elsewhere classified; I10 Essential (primary) hypertension; E86.0 Dehydration; K57.90 Diverticulosis of intestine, part unspecified, without perforation or abscess without bleeding; D64.9 Anemia, unspecified; R19.00 Intra-abdominal and pelvic swelling, mass and lump, unspecified site; R63.0 Anorexia; Z87.891 Personal history of nicotine dependence; Z79.899 Other long term (current) drug therapy; Z68.28 Body mass index [BMI] 28.0-28.9, adult
CPT/HCPCS: 36415; 49180; 71045; 71260; 74022; 74177; 77012; 80048; 80053; 81003; 81015; 82378; 83605; 83690; 83735; 84484; 85025; 85610; 85730; 86304; 88112; 88305; 88333; 88334; 88341; 88342; 93005; 96361; 96374; C1788; J1642; J2001; J2250; J2405; J2704; J3010; Q9966; Q9967

== ENCOUNTER 2018-06-08 09:05 | Day surgery (SDC) | payer OTHER, MEDICARE ==
[2018-06-03 10:26] VITALS: BMI 26.8
[2018-06-08 11:23] VITALS: BP 135/80; TEMP 98.4
--- NOTE | 2018-06-08 11:46 | CT ---
CT-guided liver mass biopsy HISTORY: Metastatic liver disease. FINDINGS: After explaining the procedure and answering all questions, Limited CT imaging of the abdom en was performed. While a small amount of fluid is present within the upper abdomen, a small window to a left liver lobe mass is present with minimal intervening fluid. This was chosen as the biopsy wi ndow. Sterile technique, buffered local anesthesia, CT guidance and a right upper quadrant anterior approac h were carefully advanced the tip of a 17-gauge trocar needle into the irregular hypodense mass in the medial segment left liver lobe. Position was confirmed with CT. A total of 4 18-gauge core biopsy specimens were obtained and submitted to Dr. Jensen from pathology who confirmed specimen adequacy. Needle was removed. No evidence of complication. Patient tolerated the procedure well and returned to the holding area in good condition for further monitoring. IMPRESSION: Technically successful CT-guided biopsy of liver mass. Pathology pending.
== END 2018-06-08 13:05 | disposition home or self-care (01) ==
LOC: CT 09:05
PROVIDERS: ATTEND Internal Medicine Hematology & Oncology
PROC: 0FB23ZX Excision of Left Lobe Liver, Percutaneous Approach, Diagnostic (ICD-10-PCS; principal; 2018-06-08)
DX: C78.7 Secondary malignant neoplasm of liver and intrahepatic bile duct (principal); C18.3 Malignant neoplasm of hepatic flexure; I10 Essential (primary) hypertension; E78.00 Pure hypercholesterolemia, unspecified; Z87.891 Personal history of nicotine dependence; Z79.899 Other long term (current) drug therapy
CPT/HCPCS: 47000; 77002; 88307; 88333; 88334; 88341; 88342

== ENCOUNTER 2018-09-08 07:23 | Outpatient (CLI) | payer MEDICARE, OTHER ==
[2018-09-08] MEDS ORDERED: Iopamidol 370 76% 100 ML VIAL ONE (09:00)
--- NOTE | 2018-09-08 09:03 | CT ---
CT CHEST WITH IV CONTRAST CT ABDOMEN WITH IV CONTRAST CT PELVIS WITH IV CONTRAST: HISTORY: Colon cancer. Malignant neoplasm of hepatic flexure exam requested to evaluate for response to treatment. COMPARISON: CT chest of 05/23/[address] abdomen and pelvis of 05/22/2018.. FINDINGS: There is been interval resolution of the right-sided pleural effusion and adjacent atelectatic change s noted on the previous study. No mediastinal hilar or axillary mass or lymphadenopathy seen. No pleural or pericardial effusions are noted on the current exam. A tiny 2-3 mm nodule is seen in the p eriphery of the posterolateral aspect of the left upper lobe. Bullous changes in the upper lung yu are again seen. There is been interval resolution of ascites since the last exam. Multiple hepatic masses are again s een with several of these demonstrating interval reduction in size. For example, the mass in the lateral segment of the left lobe of the liver currently measures 2.2 cm compared to 3.8 cm on the pre vious study. The 11 mm portacaval lymph node is stable. Aortocaval lymphadenopathy has resolved. Thickening of the wall of the right colon and terminal ileum is again seen. Adjacent enlarged lymph n ode currently measures 17 mm (26 mm previously). The cystic mass in the pelvis is smaller measuring 5.7 x 5.5 x 0.4 cm. There are vascular calcifications without evidence of aneurysmal dilatation of the thoracic or abdomi nal aorta. There are degenerative changes in the thoracolumbar spine. No osteolytic or osteoblastic lesions are seen. IMPRESSION: Interval improvement with partial response to therapy since 05/23/2018.
== END 2018-09-08 07:24 | disposition home or self-care (01) ==
LOC: SCSCT 07:23
PROVIDERS: ATTEND Internal Medicine Hematology & Oncology
DX: C18.9 Malignant neoplasm of colon, unspecified (principal)
CPT/HCPCS: 71260; 74177; Q9967

== ENCOUNTER 2018-11-21 14:27 | Day surgery (SDC) | payer MEDICARE ==
[2018-11-21] MEDS ORDERED: diphenhydrAMINE 25 MG CAP PO SCH (15:00)
[2018-11-21] MEDS ORDERED: Acetaminophen 500 MG TAB PO SCH (15:00)
[2018-11-21 16:24] VITALS: TEMP 97.9
[2018-11-21 18:19] VITALS: BP 177/82
== END 2018-11-21 18:20 | disposition home or self-care (01) ==
LOC: ONC/OP 14:27 → ONC 14:29 → ONC/OP 18:20
PROVIDERS: ATTEND Internal Medicine Hematology & Oncology
PROC: 30233N1 Transfusion of Nonautologous Red Blood Cells into Peripheral Vein, Percutaneous Approach (ICD-10-PCS; principal; 2018-11-21)
DX: D64.9 Anemia, unspecified (principal); D69.6 Thrombocytopenia, unspecified
CPT/HCPCS: 36430; 86850; 86900; 86901; P9016; Q0163

== ENCOUNTER 2018-12-01 08:43 | Outpatient (CLI) | payer MEDICARE ==
[2018-12-01 09:09] LABS: Estimated GFR-MDRD - POC Greater than 90
--- NOTE | 2018-12-01 10:29 | CT ---
Exam: Chest abdomen and pelvic CT scan with IV contrast: HISTORY: Colon cancer, malignant neoplasm of the hepatic flexure COMPARISON: 09/08/2018 FINDINGS: No mediastinal mass or adenopathy. No evidence for a pulmonary metastasis. No pleural effusion or per icardial effusion. The previously noted tiny pleural-based nodule seen in the left upper lobe region is less well-defined than appears to be associated with the major fissure. There is continued improvement in the extensive liver metastasis. The medial left lobe of liver mass now measures 2.3 cm where previous in measure 2.9 cm. A right lobe of liver mass now measures 3.2 cm where it previous ly measured 4 cm and a posterior inferior right lobe of liver mass now measures 1.5 cm where previously measured 1.9 cm. Slightly smaller abbey hepatis lymph node. Right lower mesenteric lymph n ode now measures 1.5 cm where previously measured 1.7 cm. Again noted is some abnormal wall thickening of the right colon and terminal ileum with some extension into the transverse colon with l ittle change. Previous noted pelvic cyst measuring 5.7 cm now measures 2.6 cm. No overt bone metastasis. IMPRESSION: Continued improvement particularly in the liver metastasis when compared to prior study. No significa nt new process.
== END 2018-12-01 08:44 | disposition home or self-care (01) ==
LOC: SCSCT 08:43
PROVIDERS: ATTEND Internal Medicine Hematology & Oncology
DX: C18.3 Malignant neoplasm of hepatic flexure (principal); C78.7 Secondary malignant neoplasm of liver and intrahepatic bile duct
CPT/HCPCS: 71260; 74177; 82565

== ENCOUNTER 2019-03-06 08:28 | Outpatient (CLI) | payer MEDICARE, OTHER ==
--- NOTE | 2019-03-06 10:07 | CT ---
CT OF THE CHEST, ABDOMEN AND PELVIS WITH IV CONTRAST INDICATION: History of colon cancer with metastatic disease to the liver and right ovary COMPARISON: CT of the chest, abdomen and pelvis dated December 01, 2018 and September 08, 2018. Comparisons are also made with a CT the abdomen and pelvis dated May 22, 2018. FINDINGS: CHEST: Lungs: The 5 mm groundglass pulmonary nodule seen within the anterior segment of the right upper lobe on image 15 of series 5 is stable. There is a new sub-4 mm, subpleural pulmonary nodule within the lateral segment of the right middle lobe on image 32 series 5. There are stable scattered centrilobul ar emphysema. Pleural space: No effusion. Mediastinum: There are moderate calcific lesions involving the thoracic aorta. Axilla: No pathologically enlarged lymph nodes. ABDOMEN: Lung bases: Clear Liver: The oval, heterogeneously enhancing lesion seen within segment 8 of the right hepatic lobe clementine sures 1.9 cm where previously measured 2.3 cm on image 51 of series 3. The heterogeneously enhancing mass lesion within segment 7 of the right hepatic lobe on image 52 of series 3 now measures 7.3 cm where previously it measured 8.2 cm. There is a heterogeneously enhancing hypodense mass within segment 6 of the right hepatic lobe on image 52 of series 3 measuring 4 cm where previously it measured 1.7 cm. The large hypodense mass within segment 6 of the right hepatic lobe now measures 3.9 cm where previously it measured 3.2 cm. Additional lesion within segment 6 of the right hepatic l obe on image 16 of series 3 now measures 1.8 cm where previously it measured 1.5 cm. The left lateral hepatic lobe lesion on image 49 series 3 now measures 2.6 cm were previously measured approxi mately 2.1 cm. Gallbladder: There is stable cholelithiasis Pancreas: Normal. Adrenal glands: Normal. Spleen: Normal. Kidneys and ureters: Stable small bilateral renal cysts Vasculature: There are moderate vascular calcifications seen involving the visualized vasculature. Lymph nodes:The enlarged lymph nodes seen within the right upper aspect of the mesentery on image 81 of series 3 now measures 1.2 cm where previously measured approximately 1.5 cm. There is a 1.1 cm partially calcified lymph node within the right upper quadrant mesentery on image 83 of series 3 and previously measured 9.8 mm. The portacaval lymph node has decreased in size now measuring 6.3 mm where previously this measured 1.1 cm. Free fluid in abdomen:No free fluid is evident. PELVIS: Small and large bowel: The circumferential mass of the hepatic flexure appears unchanged in size from the comparison examination. The remainder of the small and large bowel appear within normal limits. Appendix:Normal Bladder: Normal. Rectal and perirectal soft tissues:Normal. Reproductive structures: The hypodense mass involving the right aspect of the pelvis now measures 5.0 x 6.2 cm where previously measured 4.6 x 4.8 cm on image 95 of series 3 Free fluid in pelvis: No free fluid is evident. Lymphadenopathy pelvis: Mild free fluid Osseous structures: No acute osseous abnormality. No destructive osteolytic or osteoblastic lesion i s identified. There is scattered degenerative and osteoarthritic changes. Soft tissues:Normal. IMPRESSION: Findings consistent with mixed response to therapy. There are hepatic metastatic lesions have decreas ed in size from prior exam but many of which have increased. There is mixed response in size of the right mesenteric lymphadenopathy. The circumferential mass involving the hepatic flexure appears stab le. Right-sided pelvic mass is increased in size. Groundglass nodular opacity within the right upper lobe is stable. There is a new sub-4 mm pulmonary nodule within the lateral right middle lobe. Continued CT follow-up is recommended.
== END 2019-03-06 08:29 | disposition home or self-care (01) ==
LOC: SCSCT 08:28
PROVIDERS: ATTEND Internal Medicine Hematology & Oncology
DX: C18.3 Malignant neoplasm of hepatic flexure (principal); C78.7 Secondary malignant neoplasm of liver and intrahepatic bile duct; R19.00 Intra-abdominal and pelvic swelling, mass and lump, unspecified site; R19.8 Other specified symptoms and signs involving the digestive system and abdomen
CPT/HCPCS: 71260; 74177; 82565

== ENCOUNTER 2019-05-04 08:30 | Outpatient (CLI) | payer MEDICARE, OTHER ==
--- NOTE | 2019-05-04 16:12 | CT ---
CT CHEST WITH CONTRAST CT ABDOMEN WITH CONTRAST CT PELVIS WITH CONTRAST 05/04/19 HISTORY: C18.3 malignant neoplasm of hepatic flexure. COMPARISON: CT of abdomen and pelvis 03/06/19. FINDINGS: Port catheter is in place with tip at the right atrium. Mild centrilobular emphysema. No pneumothorax. No effusion. No suspicious pulmonary nodule. The aortic contour is nonaneurysmal with moderate atherosclerotic plaque. Sternum and manubrium are i ntact. No acute thoracic or lumbar spine fracture. No acute or displaced rib fracture. There is internal size increase of the hepatic metastatic disease . Hepatic segment 8 mass near the hepatic venous confluence and has a greatest transverse dimension of 3 cm, previously 1.8 cm axial image 49. Hepatic segment V- mass as a greatest transverse dimensi on of 6 cm, previously 4.5 cm. The spleen is enlarged. Pancreas is unremarkable. Aortoiliac contour is nonaneurysmal. There is dilatation of the gonadal veins. Solid and cystic mass in the right adnexa is slightly decreased in size relative to the comparison ex am measurements of 5.3 cm and decreased from over 6 cm in size. Only mild wall thickening of the ascending colon. No hydronephrosis. No suspicious soft tissue lytic or osteoblastic lesions. IMPRESSION: 1. Interval size increase hepatic metastatic disease with target lesions as described. 2. Continued size decrease of the solid and cystic adnexal mass. 3. Mild interval size increase of the right colic lymph nodes measuring up to 1.5 cm in short axis, p reviously 11-12 mm. 4. Similar appearance to the circumferential mass of the ascending colon. POS: [facility]
== END 2019-05-04 08:31 | disposition home or self-care (01) ==
LOC: SCSCT 08:30
PROVIDERS: ATTEND Internal Medicine Hematology & Oncology
DX: C18.3 Malignant neoplasm of hepatic flexure (principal); N83.8 Other noninflammatory disorders of ovary, fallopian tube and broad ligament; K63.89 Other specified diseases of intestine; K76.9 Liver disease, unspecified
CPT/HCPCS: 71260; 74177

== ENCOUNTER 2019-06-02 02:18 | Inpatient (IN) | payer MEDICARE, OTHER ==
[2019-06-02 03:07] LABS: Bilirubin Negative (Negative); Blood, Urine Negative (Negative); Clarity Turbid (Clear); Glucose, Urine (Dipstick) Normal (Negative); Leukocyte Negative Leu/uL (Negative); Nitrite Negative (Negative); Protein, Urine (Dipstick) 30 mg/dL (Neg-Trace); RBC/HPF 0-3 HPF (0-3); Squamous Epithelial 0-3 HPF (0-3); Urobilinogen Normal mg/dL (Less than 2); WBC/HPF 0-3 HPF (0-3)
[2019-06-02 03:09] LABS: Hemoglobin 8.4 g/dL (12.0-16.0); Mean Corpuscular HGB CONC 31.6 g/dL (32.0-36.0); Mean Corpuscular Hemoglobin 33.2 pg (27.0-31.0); RBC Distribution Width 17.8 % (11.5-14.5); Red Blood Cell (RBC) Count 2.53 mill/uL (4.20-5.40)
[2019-06-02 03:11] LABS: White Blood Cell (WBC) Count 0.6 thou/uL (4.8-10.8)
[2019-06-02 03:13] LABS: Bacteria/HPF Rare-Few HPF (None Seen)
[2019-06-02 03:18] LABS: ALT (SGPT) Less than 7 U/L (8-55); AST (SGOT) 28 U/L (5-34); Albumin 3.3 g/dL (3.4-4.8); Alkaline Phosphatase 126 U/L (40-110); Anion Gap 26 mmol/L (10-20); BUN (Urea Nitrogen) 37 mg/dL (9.8-20.1); Bilirubin, Total 2.4 mg/dL (0.2-1.2); Calc. Creatinine Clearance 0 mL/min (70-130); Calcium 8.5 mg/dL (7.8-10.44); Carbon Dioxide 12 mmol/L (23-31); Chloride 104 mmol/L (98-107); Estimated GFR-MDRD 14; Glucose 65 mg/dL (80-115); Potassium 4.5 mmol/L (3.5-5.1); Protein, Total 7.3 g/dL (6.0-8.3); Sodium 137 mmol/L (136-145)
[2019-06-02 03:42] LABS: Anisocytosis SLIGHT = 6-15 cells (100X) (0-5/hpf); Band 7 % (5-11); Lymphocytes 60 % (21-51); MDiff Complete? YES; Metamyelocyte 4 % (0-0); Monocytes 13 % (0-10); Myelocyte 3 % (0-0); Neutrophil 12 % (42-75); Platelet Count 37 thou/uL (130-400); Platelet Morphology Comment Appears Decreased; Reactive Lymphocytes 1 % (0-10); Reflex for Review?? YES
[2019-06-02] MEDS ORDERED: Vancomycin 1 GM/200 ML BAG ONE (04:01)
[2019-06-02] MEDS ORDERED: Piperacillin/Tazobactam 3.375 GM VIAL ONE (04:01)
[2019-06-02] MEDS ORDERED: Sodium Chloride 0.9% 1,000 ML IV SCH (04:55)
[2019-06-02] MEDS: Sodium Chloride 0.9% 1,000 ML IV SCH ×3 (05:00→23:38)
[2019-06-02 05:16] VITALS: BMI 18.6
[2019-06-02] MEDS ORDERED: Ondansetron PF 4 MG/2 ML Vial IVP PRN (06:05)
--- NOTE | 2019-06-02 06:43 | HP ---
HISTORY OF PRESENT ILLNESS: Ms. Zhang is a 68-year-old female with a medical history of colon cancer with metastasis to the liver, hypertension, and recent chemotherapy (per the patient, last chemotherapy was this past Wednesday, administered by Dr. Gusman in [place]), who presented for reduced oral intake. Per the family, who brought the patient, the patient has been eating and drinking less in the past several days. In addition, the patient endorses diarrhea, which is normal to her after chemotherapy, requiring self-administration of Imodium. This evening, the patient went from a sitting to standing position and felt dizziness and fell, hitting the back of the head. On encounter, the patient is lying comfortably in bed and has no complaints. Denies fatigue, headache, change in vision, vertigo, fevers, chills, night sweats, throat pain, tooth pain, chest pain, pleuritic pain, cough, abdominal pain, hematochezia, melena, polyuria, hematuria, recent sick contacts, travel in the past 14 days. ED COURSE: In the ED, the patient was found to be drowsy and hypotensive. Systolic was in the 70s and white count was 0.6 with 12% neutrophil count. Lactate was elevated and she also had DILLAN. She was administered 2 L of normal saline as bolus and her blood pressure promptly improved to 101/64, her tachycardia significantly improved to 105, and she was admitted to Oncology observation for further management. REVIEW OF SYSTEMS: Complete review of systems was carried out and all findings were negative except to those mentioned in the HPI. PAST MEDICAL HISTORY: Colon cancer with hepatic metastases, currently on chemotherapy with the last dose given this past Wednesday; hypertension. PAST SURGICAL HISTORY: No surgeries in the past. FAMILY HISTORY: Brother had stomach cancer, another brother had lung cancer, and another brother had leukemia. Her sister had breast cancer and her mother had ovarian cancer. SOCIAL HISTORY: Non-smoker, quit recently. Does not drink alcohol and does not use recreational drugs. She is and her is her surrogate decision maker. ALLERGIES: NONE. MEDICATIONS: Currently on amlodipine 5 mg p.o. daily. PHYSICAL EXAMINATION: VITAL SIGNS: Her vitals in the ED were blood pressure 103/64, pulse 105, respiratory rate 24, rectal temperature was 98.8, oxygen saturation 99% on room air. GENERAL: No apparent distress. HEENT: PERRL. EOMI. Dry oral mucosa. No oropharyngeal lesions were appreciated. HEART: Regular rhythm, tachycardic. No murmurs. No rubs. LUNGS: Clear to auscultation bilaterally. No wheezing, rales, or rhonchi. ABDOMEN: Soft, nontender, nondistended. Positive bowel sounds. EXTREMITIES: No edema. SKIN: Unremarkable. NEUROLOGIC: Alert and oriented x3. Cranial nerves 2 through 12 are grossly intact. No focal deficits. LABS AND DIAGNOSTIC STUDIES: Reviewed. Chest x-ray was negative for acute cardiopulmonary process. EKG showed sinus tachycardia with no signs of acute ischemia. ASSESSMENT AND PLAN: Ms. Zhang is a 68-year-old female with a medical history of colon cancer and hepatic metastasis, currently on chemotherapy, who presented with severe dehydration and acute kidney injury status post chemotherapy. #Dehydration. a. Per the patient's family, had severely reduced oral intake even though did have a small meal the evening prior to presentation. 2. Had a fall that occurred when transitioning from sitting to erect position, acute kidney injury, low blood pressure, and tachycardia, which are consistent with dehydration. Blood pressure was promptly responsive to fluids. 3. On encounter, the patient at baseline. 4. Denies any signs or symptoms suggesting infectious etiology. 5. Plan;. a. The patient received 2 L of normal saline boluses in the ED. b. We will take orthostatics. c. We will continue to maintain normal saline IV fluids. d. Admitted to observation with expected length of stay of one midnight. # Severe neutropenia. a. No signs or symptoms of infection. b. In the ED, rectal temperature was taken, considering rectal access was performed on a neutropenic patient, we will monitor for development of fever during inpatient stay. c. Pending infectious workup. d. Even if infectious workup is negative, consider prophylactic antibiotics based on risk stratification of the patient. Requested medical records regarding chemotherapy to be obtained. # Acute kidney injury #Anion gap metabolic acidosis a. Likely multifactorial due to reduced effective perfusion and chemotherapy. b. Requested records regarding chemotherapy to be obtained. c. Urinalysis showed hyaline casts, which is a nonspecific finding, not consistent with ATN/AIN anion gap likely lactic acidosis and accumulation of organic acids due to DILLAN 8. Plan;. a. Continue IV fluids and monitor renal function, I/O #. Chronic Anemia. HgB not significantly decreeased compared to 05/25 a. The patient presented tachycardic however, may be due to dehydration rather than acute anemia. b. The patient denies acute blood loss and tachycardia resolved promptly after fluid supplementation. c. Likely due to chemotherapy as well as blood loss due to colon cancer. 10. Plan;. a. Continue to follow hemoglobin and hematocrit. b. Supplement if hemoglobin is below 7 g/dL. 11. Disposition and prophylaxis;. a. The patient is full code. Surrogate decision maker is the patient's . 12. Deep venous thrombosis prophylaxis, enoxaparin. 13. Gastrointestinal prophylaxis, not indicated. 14. Expected length of stay, one midnight. Job ID: [id number] [facility]
[2019-06-02 06:58] LABS: Lactic Acid 2.6 mmol/L (0.5-2.2)
--- NOTE | 2019-06-02 07:23 | RAD ---
SINGLE VIEW CHEST: Date: 06/02/2019 COMPARISON: 05/24/2018. HISTORY: Dehydration and hypotension. FINDINGS: Single view of the chest shows normal sized cardiomediastinal silhouette. The MediPort is unchanged i n position. There is no evidence of consolidation, mass, or pleural effusion. IMPRESSION: No evidence of acute cardiopulmonary disease. POS: [facility]
[2019-06-02] MEDS: Thiamine HCl 200 MG/2 ML VIAL SLOW IVP SCH (08:37)
[2019-06-02] MEDS ORDERED: Enoxaparin Sodium 30 MG/0.3 ML SYRINGE SC SCH (09:00)
[2019-06-02] MEDS ORDERED: Prevnar 13-Val Conj/PF 0.5 ML SYRINGE IM ONE (09:00)
[2019-06-02] MEDS: Folic Acid 0.4 MG in Admixture Fee 1 EACH SC SCH (09:14)
[2019-06-02 09:45] LABS: Hemoglobin 6.4 g/dL (12.0-16.0); Mean Corpuscular HGB CONC 32.7 g/dL (32.0-36.0); Mean Corpuscular Hemoglobin 33.6 pg (27.0-31.0); Mean Platelet Volume 13.1 fL (7.4-10.4); Platelet Count 37 thou/uL (130-400); RBC Distribution Width 17.7 % (11.5-14.5); White Blood Cell (WBC) Count 0.7 thou/uL (4.8-10.8)
[2019-06-02 10:01] LABS: Anion Gap 17 mmol/L (10-20); BUN (Urea Nitrogen) 36 mg/dL (9.8-20.1); Calc. Creatinine Clearance 14 mL/min (70-130); Carbon Dioxide 17 mmol/L (23-31); Chloride 106 mmol/L (98-107); Estimated GFR-MDRD 18; Glucose 62 mg/dL (80-115); Magnesium 1.6 mg/dL (1.6-2.6); Potassium 4.2 mmol/L (3.5-5.1); Sodium 136 mmol/L (136-145)
[2019-06-02 10:29] LABS: Band 16 % (5-11); Lymphocytes 50 % (21-51); MDiff Complete? YES; Macrocytosis SLIGHT = 6-15 cells (100X) (0-5/hpf); Monocytes 16 % (0-10); Neutrophil 14 % (42-75); Platelet Morphology Comment Appears Decreased; Polychromasia SLIGHT = 2-3 cells (100X) (0-2/hpf); Reactive Lymphocytes 2 % (0-10)
[2019-06-02] MEDS ORDERED: Cefepime 1 GM in Sodium Chloride 0.9% 100 ML IVPB SCH (11:00)
[2019-06-02 12:36] LABS: Creatinine, Urine 241.41 mg/dL (47-110)
[2019-06-02] MEDS ORDERED: Acetaminophen 325 MG TAB PO PRN (12:57)
[2019-06-02] MEDS ORDERED: Aluminum & Magnesium Hydroxide 60 ML, Lidocaine 2% Viscous Solution 30 ML, diphenhydrAM... PO PRN (12:58)
--- NOTE | 2019-06-02 13:07 | CON ---
DATE OF CONSULTATION: REASON FOR CONSULTATION: Colon cancer. HISTORY OF PRESENT ILLNESS: A 68-year-old female with metastatic colon cancer. Currently on FOLFIRI plus Vectibix, presenting to the hospital with severe dehydration, fall, and DILLAN. The patient last received chemotherapy on May 21 and for the last 4 to 5 days, has not been eating or drinking due to sores in her mouth. Her daughter called the clinic on Wednesday complaining of this and was advised to come to the clinic for IV fluids and evaluation and the patient declined and stayed home. In the middle of the night, she says she tried to grab something and she felt weak and dizzy and fell down and her had to help her up. Her daughter called me at 1 a.m. and I advised her to go to the ER. Upon evaluation in the ER, blood pressure, systolic was in the 70s and she was tachycardic. Her creatinine was 4 and she was given aggressive IV fluid resuscitation. Currently , she is sitting up in bed, eating breakfast and appears well. States her mouth sores have improved and are not very painful anymore. During the last week, she denies any significant nausea and only mild diarrhea, controlled with Imodium. She is currently afebrile. REVIEW OF SYSTEMS: Ten-point review of systems negative except as per HPI. PAST MEDICAL HISTORY: Hypertension and high cholesterol. SOCIAL HISTORY: She has three children. She is a long-term smoker. No alcohol. SURGICAL HISTORY: MediPort placement. FAMILY HISTORY: Stomach cancer in brother, lung cancer in another brother and leukemia in another brother. Breast cancer in her sister and mother with ovarian cancer. ALLERGIES: NONE. CURRENT MEDICATIONS: Reviewed. PHYSICAL EXAMINATION: VITAL SIGNS: Temperature 98.9, pulse 98, respirations 19, saturating 100% on room air, blood pressure 116/67. GENERAL APPEARANCE: The patient is sitting up in bed, in no acute distress, eating breakfast. HEENT: Normocephalic and atraumatic. No scleral icterus noted. LUNGS: Respirations are nonlabored. CARDIAC: No tachycardia noted. ABDOMEN: Soft, nondistended. EXTREMITIES: No edema. NEUROLOGIC: Cranial nerves 2 through 12 are grossly intact. PSYCHIATRIC: Awake, alert, oriented x3 with normal affect. LABORATORY DATA: White blood cells 0.7, hemoglobin 8.4 on admission, currently 6.4 and platelets 37; 14% neutrophils and 16% band neutrophils. Sodium 136, potassium 4.2, creatinine 4.01 on admission, currently 3.16. Lactic acid 6.1 on admission , currently 2.6. Total bilirubin 2.4. BNP 116.6, troponin 0.015. ASSESSMENT AND PLAN: A 68-year-old female with metastatic colon cancer on FOLFIRI plus Vectibix, presenting with mucositis, severe dehydration and acute kidney injury. Clinically, the patient has dramatically improved with IV fluid resuscitation and kidney function appears to be improving. Recommend 2 units packed red blood cells transfused for hemoglobin of 6.4. The patient's mucositis appears to have improved and does not have any significant findings on exam. Recommend continuing IV fluid resuscitation for now and kidney function continues to improve. In the morning, she will likely be discharged home with followup with me in clinic on Wednesday. She is neutropenic from chemotherapy and she is at her karma, although she did receive Udenyca, and this should not keep her in the hospital as she is currently afebrile. Thank you for this consult. Job ID: [id number] [facility]
[2019-06-02 16:32] LABS: Bacteria/HPF 2+ HPF (None Seen); Bilirubin Negative (Negative); Blood, Urine 2+ (Negative); Clarity Turbid (Clear); Glucose, Urine (Dipstick) Normal (Negative); Leukocyte Negative Leu/uL (Negative); Nitrite Negative (Negative); Protein, Urine (Dipstick) 30 mg/dL (Neg-Trace); RBC/HPF 0-3 HPF (0-3); Squamous Epithelial 0-3 HPF (0-3); Urobilinogen Normal mg/dL (Less than 2)
[2019-06-02] MEDS ORDERED: Loperamide HCl 2 MG CAP PO PRN (23:11)
[2019-06-03 07:17] LABS: Anion Gap 17 mmol/L (10-20); BUN (Urea Nitrogen) 31 mg/dL (9.8-20.1); Calc. Creatinine Clearance 28 mL/min (70-130); Calcium 8.3 mg/dL (7.8-10.44); Carbon Dioxide 15 mmol/L (23-31); Chloride 110 mmol/L (98-107); Estimated GFR-MDRD 38; Potassium 4.3 mmol/L (3.5-5.1); Sodium 138 mmol/L (136-145)
[2019-06-03 07:21] LABS: Glucose 55 mg/dL (80-115)
[2019-06-03] MEDS ORDERED: Dextrose 50% Abboject 50 ML SYRINGE ONE (07:39)
[2019-06-03] MEDS ORDERED: Dextrose 5% in Water 1,000 ML IV PRN (07:44)
[2019-06-03] MEDS ORDERED: Dextrose 50% Abboject 50 ML SYRINGE SLOW IVP PRN (07:44)
[2019-06-03 07:48] LABS: Band 31 % (5-11); Eosinophils 1 % (0-10); Hemoglobin 9.4 g/dL (12.0-16.0); Lymphocytes 34 % (21-51); MDiff Complete? YES; Mean Corpuscular HGB CONC 33.8 g/dL (32.0-36.0); Mean Corpuscular Hemoglobin 33.7 pg (27.0-31.0); Mean Corpuscular Volume 99.5 fL (78.0-98.0); Metamyelocyte 3 % (0-0); Monocytes 13 % (0-10); Neutrophil 18 % (42-75); Platelet Count 44 thou/uL (130-400); Platelet Morphology Comment Appears Decreased; RBC Distribution Width 16.1 % (11.5-14.5); Red Blood Cell (RBC) Count 2.79 mill/uL (4.20-5.40); Toxic Granulation SLIGHT
[2019-06-03] MEDS ORDERED: Enoxaparin Sodium 30 MG/0.3 ML SYRINGE SC SCH (09:00)
[2019-06-03] MEDS: Thiamine HCl 200 MG/2 ML VIAL SLOW IVP SCH (09:15)
[2019-06-03] MEDS: Folic Acid 0.4 MG in Admixture Fee 1 EACH SC SCH (09:15)
[2019-06-03 13:43] LABS: Anion Gap 15 mmol/L (10-20); BUN (Urea Nitrogen) 26 mg/dL (9.8-20.1); Calc. Creatinine Clearance 34 mL/min (70-130); Carbon Dioxide 19 mmol/L (23-31); Chloride 107 mmol/L (98-107); Estimated GFR-MDRD 48; Glucose 77 mg/dL (80-115); Potassium 3.2 mmol/L (3.5-5.1); Sodium 138 mmol/L (136-145)
[2019-06-03] MEDS ORDERED: Potassium Chloride 20 MEQ TAB PO SCH (15:06)
[2019-06-03] MEDS: Sodium Chloride 0.9% 1,000 ML IV SCH (15:06)
--- NOTE | 2019-06-03 15:34 | PDOC.MOPN ---
Interval History: Pt feeling ok today. She is eating well. She had diarrhea overnight that has since resolved. She has been having ongoing hypoglycemia despite Dextrose and D5W. She wishes to go home now. - Vital Signs Vital Signs: Vital Signs (12 hours) Temp Pulse Resp BP BP BP Pulse Ox 06/03/19 12:17 97.8 F 99 16 130/65 100 06/03/19 08:10 98.5 F 104 H 18 126/72 96 06/03/19 08:00 98.5 F 104 H 18 126/72 96 Weight Admit Weight 115 lb 6 oz Weight 115 lb 6 oz - Physical Exam General: Alert, Oriented x3 HEENT: EOMI Lungs: Normal air movement Cardiovascular: Regular rate Neurological: Cranial nerves 3-12 NL Psych/Mental Status: Other (agitated, anxious) - Labs Result Diagrams: 06/03/19 06:35 06/03/19 13:18 Lab results: Laboratory Results - last 24 hr 06/03/19 13:18: Sodium 138, Potassium 3.2 L, Chloride 107, Carbon Dioxide 19 L, Anion Gap 15, BUN 26 H, Creatinine 1.34 H, Estimated GFR (MDRD) 48, Glucose 77 L , Calcium 9.0 06/03/19 11:02: POC Glucose 69 L 06/03/19 08:49: POC Glucose 113 H 06/03/19 07:40: POC Glucose 55 L* 06/03/19 06:35: WBC 2.0 L, RBC 2.79 L, Hgb 9.4 L, Hct 27.7 L, MCV 99.5 H, MCH 33.7 H, MCHC 33.8, RDW 16.1 H, Plt Count 44 L, MPV 13.0 H, Neutrophils % (Manual ) 18 L, Band Neuts % (Manual) 31 H, Lymphocytes % (Manual) 34, Monocytes % ( Manual) 13 H, Eosinophils % (Manual) 1, Metamyelocytes % (Man) 3 H, Toxic Granulation SLIGHT, Plt Morphology Comment Appears Decreased L 06/03/19 06:35: Sodium 138, Potassium 4.3, Chloride 110 H, Carbon Dioxide 15 L, Anion Gap 17, BUN 31 H, Creatinine 1.63 H, Estimated GFR (MDRD) 38, Glucose 55 L *, Calcium 8.3 06/02/19 11:15: Urine Creatinine 82.30 06/02/19 11:15: Urine Sodium 91 06/02/19 11:15: Urine Color Yellow, Urine Clarity Turbid A, Urine pH 6.0, Ur Specific [place] 1.012, Urine Protein 30 A, Urine Glucose (UA) Normal, Urine Ketones Negative, Urine Blood 2+ A, Urine Nitrite Negative, Urine Bilirubin Negative, Urine Urobilinogen Normal, Ur Leukocyte Esterase Negative, Urine RBC 0 -3, Urine WBC 7-10 A, Ur Squamous Epith Cells 0-3, Amorphous Crystals Rare A, Urine Bacteria 2+ A, Granular Casts 7-10 A 06/02/19 10:16: Crossmatch See Detail A/P - Problem (1) Colon cancer Current Visit: Yes Code(s): C18.9 - MALIGNANT NEOPLASM OF COLON, UNSPECIFIED Status: Acute (2) Acute kidney failure Current Visit: Yes Status: Acute (3) Hypoglycemia Current Visit: Yes Code(s): E16.2 - HYPOGLYCEMIA, UNSPECIFIED Status: Acute - Plan Plan: Anemia and DILLAN improved, kidney function almost back to baseline I d/w hospitalist the plan for hypoglycemia and it would be in her best interest to stay until tomorrow morning for monitoring and check fasting glucose in the AM. Pt wishes to leave and if she does it will be against medical advice. Pt and daughter understand.
[2019-06-03] MEDS ORDERED: Loperamide HCl 2 MG CAP PO PRN (18:43)
--- NOTE | 2019-06-03 20:30 | PDOC.HOSPP ---
- Subjective Encounter Date: 06/03/19 Encounter Time: 09:00 Subjective: no overnight events. Today, several episodes of asymptomatic fasting and postprandial hypoglycemia. Has no complaints. requests to go home but explained that further monitoring required to determine if becomes symptomatic during hypoglycemic episodes, which may require further evaluation. - Objective Vital Signs & Weight: Vital Signs (12 hours) Temp Pulse Resp BP Pulse Ox 06/03/19 19:07 97.6 F 104 H 16 125/73 97 06/03/19 16:05 98.2 F 111 H 18 133/70 100 06/03/19 12:17 97.8 F 99 16 130/65 100 Weight Admit Weight 115 lb 6 oz Weight 115 lb I&O: 06/02/19 06/03/19 06/04/19 06:59 06:59 06:59 Intake Total 4503 700 Output Total 700 Balance 3803 700 Result Diagrams: 06/03/19 06:35 06/03/19 13:18 Additional Labs: Accuchecks 06/03/19 06/03/19 06/03/19 15:34 11:02 08:49 POC Glucose 86 69 L 113 H 06/03/19 07:40 POC Glucose 55 L* Hospitalist ROS - Review of Systems Constitutional: denies: fever, chills, sweats, weakness, malaise, other Respiratory: denies: cough, dry, shortness of breath, hemoptysis, SOB with excertion, pleuritic pain, sputum, wheezing, other Cardiovascular: denies: chest pain, palpitations, orthopnea, paroxysmal noc. dyspnea, edema, light headedness, other Gastrointestinal: denies: nausea, vomiting, abdominal pain, diarrhea, constipation, melena, hematochezia, other Genitourinary: denies: dysuria, frequency, incontinence, hematuria, retention, other - Medication Medications: Active Medications Generic Name Dose Route Start Last Admin Trade Name Freq PRN Reason Stop Dose Admin Acetaminophen 650 mg 06/02/19 12:57 06/02/19 14:18 Tylenol PO 650 mg Q6H PRN Administration Pain Sodium Chloride 1,000 mls @ 100 mls/hr 06/02/19 06:00 06/03/19 15:06 Normal Saline 0.9% IV 1,000 mls .Q10H BHARATHI Administration Folic Acid 0.4 mg/ 0.08 mls @ 0 mls/hr 06/02/19 09:00 06/03/19 09:15 Miscellaneous Medication SC 0.08 mls DAILY BHARATHI Administration Sodium Chloride 10 ml 06/02/19 09:00 06/03/19 09:15 Flush - Normal Saline IVF 10 ml Q12HR BHARATHI Administration Sodium Chloride 10 ml 06/02/19 06:13 06/02/19 14:19 Flush - Normal Saline IVF 10 ml PRN PRN Administration Saline Flush Thiamine HCl 100 mg 06/02/19 09:00 06/03/19 09:15 Thiamine Hcl SLOW IVP 100 mg Q24HR BHARATHI Administration - Exam General Appearance: NAD, awake alert Heart: RRR, no murmur, no gallops, no rubs, normal peripheral pulses Respiratory: CTAB, no wheezes, no rales, no ronchi, normal chest expansion, no tachypnea, normal percussion Gastrointestinal: soft, non-tender, non-distended, normal bowel sounds, no palpable masses, no hepatomegaly, no splenomegaly, no bruit Extremities: no edema Hosp A/P - Plan #DILLAN - improving with fluids #hypoglycemia - fasting and postprandial; however asymptomatic so no additional workup required at this time; will continue to observe #asymptomatic bacteriuria - no treatment indicated #diarrhea - chronic, likely due to mucositis; immodium likely DC 06/03
[2019-06-04] MEDS: Sodium Chloride 0.9% 1,000 ML IV SCH ×2 (00:48→04:05)
[2019-06-04 07:08] LABS: Anion Gap 13 mmol/L (10-20); BUN (Urea Nitrogen) 21 mg/dL (9.8-20.1); Calc. Creatinine Clearance 53 mL/min (70-130); Calcium 8.6 mg/dL (7.8-10.44); Carbon Dioxide 18 mmol/L (23-31); Chloride 111 mmol/L (98-107); Estimated GFR-MDRD 80; Glucose 64 mg/dL (80-115); Potassium 3.6 mmol/L (3.5-5.1); Sodium 138 mmol/L (136-145)
[2019-06-04 08:15] LABS: Band 32 % (5-11); Eosinophils 1 % (0-10); Hemoglobin 9.9 g/dL (12.0-16.0); Lymphocytes 13 % (21-51); MDiff Complete? YES; Mean Corpuscular HGB CONC 34.6 g/dL (32.0-36.0); Mean Corpuscular Hemoglobin 34.3 pg (27.0-31.0); Mean Corpuscular Volume 99.3 fL (78.0-98.0); Mean Platelet Volume 12.4 fL (7.4-10.4); Metamyelocyte 1 % (0-0); Monocytes 1 % (0-10); Myelocyte 1 % (0-0); Neutrophil 51 % (42-75); Platelet Count 52 thou/uL (130-400); Platelet Morphology Comment Appears Decreased; RBC Distribution Width 16.2 % (11.5-14.5); Red Blood Cell (RBC) Count 2.88 mill/uL (4.20-5.40); Toxic Granulation SLIGHT; White Blood Cell (WBC) Count 6.4 thou/uL (4.8-10.8)
[2019-06-04] MEDS: Folic Acid 0.4 MG in Admixture Fee 1 EACH SC SCH (08:46)
[2019-06-04] MEDS: Thiamine HCl 200 MG/2 ML VIAL SLOW IVP SCH (08:46)
[2019-06-04 09:32] VITALS: BP 134/75; TEMP 98.4
--- NOTE | 2019-06-05 06:14 | DIS ---
DATE OF ADMISSION: 06/02/2019 DATE OF DISCHARGE: 06/04/2019 HOSPITAL COURSE: Ms. Zhang is a 68-year-old female with a medical history of metastatic colon cancer, who presented with reduced oral intake. She was diagnosed with dehydration, prerenal acute kidney injury, and asymptomatic hypoglycemia. 1. Dehydration. a. The patient presented with reduced oral intake due to mucositis resulting in dehydration. b. The patient was supplemented with IV fluids and improved promptly. 2. Prerenal DILLAN. a. Due to above mentioned problem. b. The patient again was supplemented with IV fluids and the renal function improved to near baseline levels prior to discharge. 3. Hypoglycemia. The patient had both fasting and postprandial hypoglycemia that was asymptomatic despite eating most of her meals. a. Because the patient was asymptomatic, no additional workup was indicated. b. The patient was educated regarding hypoglycemia, its symptoms, and how to prevent it and was requested to eat in between meals as well as prior to bedtime. c. The patient was requested to come back to the ED in case symptoms precipitate. 4. Asymptomatic bacteriuria. a. The patient had bacteria on urinalysis and urine culture, however, did not have any associated symptoms. b. No treatment indicated. 5. Diarrhea. a. 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 b. The patient's oncologic team aware of diarrhea due to chemotherapy. c. The patient is on Imodium. d. The patient was educated regarding proper administration of Imodium and maximal daily dose of 16 mg. On the day of discharge, the patient was hemodynamically stable and had no complaints. She adamantly requested to go home. PHYSICAL EXAMINATION: VITAL SIGNS: Unremarkable with the exception of mild tachycardia. GENERAL APPEARANCE: No apparent distress. Awake and alert. HEART: Regular rhythm, mildly tachycardic, no murmurs, gallops, or rubs. Normal peripheral pulses. RESPIRATORY: Clear to auscultation bilaterally. No wheezes, rales, or rhonchi. Normal chest expansion. No tachypnea. GI: Soft, nontender, nondistended. Normal bowel sounds. EXTREMITIES: No edema. MEDICATIONS: Medication list on discharge; 1. New medication: No new medication. 2. Continued medication: Imodium 2 mg oral p.r.n. diarrhea. Maximal dose of 16 mg daily. 3. Discontinued medication: Amlodipine 5 mg p.o. daily. The patient's blood pressure was borderline hypotensive. Should be reassessed by primary care physician. Job ID: [id number]
--- NOTE | 2019-06-05 20:46 | PQF ---
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 Clinical indicators are provided on the bottom of this form for your review Can you please further clarify if Sepsis is ruled in or ruled out? Sepsis [ ] Ruled in diagnosis [ ] Continue to treat [ ] Resolved [ x] Ruled out diagnosis [ ] Cannot rule out diagnosis [ ] Other diagnosis [ ] Unable to determine In addition, please specify: Present on Admission (POA): [ ] Yes [ ] No [ ] Unable to determine For continuity of documentation, please document condition throughout progress notes and discharge summary. Thank You. CLINICAL INDICATORS - SIGNS / SYMPTOMS / LABS ED Provider pg.3- Sepsis Hospitalist PN pg.4- asymptomatic bacteriuria-no treatment indicated Hospitalist PN pg.4- diarrhea-chronic likely due to mucositis H and P pg.1- found to be drowsy and hypotensive H and P pg.1- lactic acid was elevated H and P pg.1- tachycardia significantly improved to 105 Laboratory- "WBC 06/01- 6.04, 411:2.0, 06/03: 6.4 " RISK FACTORS 68 years old- H and P pg.1 Colon cancer with hepatic metastasis- H and P pg.1 Dehydration- H and pg.2 Severe neutropenia- H and P pg.3 Hypoglycemia- DS pg.1 Asymptomatic Bacteruria- DS pg.1 TREATMENTS Chest Xray 06/01 Oncology Consult 06/01 Piperacillin 3.375mg- IV- MAR Vancomycin 1gm IV -MAR Urine culture- Microbiology IV Fluids- MAR Sepsis Protocol initiated- ED Notes 06/01 (This form is maintained as a part of the permanent medical record) 2014 [employer]. All Rights Reserved [email or web address]
--- NOTE | 2019-06-05 20:49 | PQF ---
[facility] Patient Service Associate Crystal Reports Winform Viewer FROILAN OLMEDO CHRIS, TAMIKO [id number] CLINICAL DOCUMENTATION CLARIFICATION FORM: POST DISCHARGE Addendum to original discharge summary date: ____ Late entry note date: __ Date: 06/05/19 ATTN: Tamiko Melendrez Please exercise your independent, professional judgment in responding to the clarification form. Clinical indicators are provided on the bottom of this form for your review Can you please further clarify the diagnosis of the patient? Please check appropriate box(s): [ ] Protein Calorie Malnutrition: [ ] Mild [ ] Moderate [ ] Severe [ ] Other Malnutrition (please specify) __ [ x ] Underweight without malnutrition [ ] Cachexia [ ] Other diagnosis please specify [ ] Unable to determine In addition, please specify: Present on Admission (POA): [x ] Yes [ ] No [ ] Unable to determine CLINICAL INDICATORS - SIGNS / SYMPTOMS / LABS BMI 18.6 H and P pg.1- Presented for reduced Oral intake H and P pg.1- the patient has been eating and drinking less in the past several days Food and Nutrition assessment- unsure weight loss DS pg.1- Presented with reduced oral intake due to mucositis resulting to dehydration RISK FACTORS DILLAN- H and P pg.1 68 years old- H and P pg.1 Colon cancer with hepatic metastasis- H nd P pg.1 Dehydration- H and pg.2 Severe neutropenia- H and P pg.3 Metabolic acidosis- H and P pg.3 Hypoglycemia- DS pg.1 TREATMENT: Dietary Consult-Patient care IV Fluids- MAR I and O monitoring Thiamine Hcl 100mg IV- MAR Folic Acid 0.4mg SC daily- MAR Blood transfusion- Blood bank Moderate Malnutrition (in acute illness) Energy Intake: <75% of estimated energy requirement for > 7 days Weight Loss: 1-2%/1 week; 5%/ 1 month; 7.5%/3 months Other: mild body fat loss; mild muscle mass loss; mild fluid accumulation; Severe Malnutrition (in acute illness) Energy Intake: < 50% of estimated energy requirement for > 5 days Weight Loss: >1-2%/1 week; >5%/1 month; >7.5%/3 months Other: moderate body fat loss; moderate muscle mass loss; moderate- severe fluid accumulation; measurably reduced manager internal strength Moderate Malnutrition (in chronic illness) Energy Intake: <75% of estimated energy requirement for >1 month Weight Loss: 5%/1 month; 7.5%/3 months; 10%/6 months; 20%/1 year Other: mild body fat loss; mild muscle mass loss; mild fluid accumulation Severe Malnutrition (in chronic illness) Energy Intake: <75% of estimated energy requirement for >1 month Weight Loss: >5%/1 month; >7.5%/3 months; >10%/6 months; >20%/1 year Other: severe body fat loss; severe muscle mass loss; severe fluid accumulation ; measurably reduced manager internal strength (This form is maintained as a part of the permanent medical record) 2014 [employer]. All Rights Reserved [email or web address]
== END 2019-06-04 10:24 | disposition home or self-care (01) | DRG 683 ==
LOC: ERS 02:18 → INTOOBSV 03:27 → ONC 03:27 → OBSVTOIN 13:37
PROVIDERS: ADMIT Internal Medicine; ATTEND Internal Medicine
PROC: 30233N1 Transfusion of Nonautologous Red Blood Cells into Peripheral Vein, Percutaneous Approach (ICD-10-PCS; principal; 2019-06-02)
DX: N17.9 Acute kidney failure, unspecified (principal); C18.9 Malignant neoplasm of colon, unspecified; C78.7 Secondary malignant neoplasm of liver and intrahepatic bile duct; E87.2 Acidosis; K52.1 Toxic gastroenteritis and colitis; Z68.1 Body mass index [BMI] 19.9 or less, adult; E16.2 Hypoglycemia, unspecified; I10 Essential (primary) hypertension; E60 Dietary zinc deficiency; D64.81 Anemia due to antineoplastic chemotherapy; T45.1X5A Adverse effect of antineoplastic and immunosuppressive drugs, initial encounter; K12.30 Oral mucositis (ulcerative), unspecified; E78.00 Pure hypercholesterolemia, unspecified; R63.6 Underweight; K52.89 Other specified noninfective gastroenteritis and colitis; R82.71 Bacteriuria; I95.9 Hypotension, unspecified; Z87.891 Personal history of nicotine dependence; Z79.899 Other long term (current) drug therapy; E86.0 Dehydration; D70.1 Agranulocytosis secondary to cancer chemotherapy
CPT/HCPCS: 36415; 36416; 36430; 51701; 71045; 80048; 80053; 81003; 81015; 82570; 83605; 83735; 83880; 84300; 84484; 85007; 85025; 85027; 85060; 86850; 86900; 86901; 87040; 87077; 87086; 87186; 93005; 96361; 96365; 96374; A4353; J2543; J3370; J3411; P9016; Q0163

== ENCOUNTER 2019-07-24 08:57 | Outpatient (CLI) | payer MEDICARE, OTHER ==
--- NOTE | 2019-07-24 10:43 | CT ---
CT THORAX WITH CONTRAST CT ABDOMEN WITH CONTRAST CT PELVIS WITH CONTRAST: DATE: 07/24/2019 HISTORY: 69 year old female with metastatic colon cancer. Follow-up. ICD-10: "C 18.3 malignant neoplasm of hepatic flexure of colon" COMPARISON: 05/04/2019 TECHNIQUE: IV iodinated contrast media: Administered Oral contrast media: Administered Single phase scans of thorax, abdomen, and pelvis. FINDINGS: Thorax: Approximately 1.6 x 1.6 x 0.6 cm exophytic osteoblastic lesion protruding from slightly indenting the posterior medial pleural surface. Uncertain whether arising from inferior surface of proximal right fourth rib or from distal tip of right T4 transverse process. Unchanged since 05/04/2019. Favore d to represent osteochondroma rather than bone metastasis. Abutting the lateral pleural surface, there is a 0.8 x 0.5 x 0.7 cm noncalcified pulmonary nodule at the far lateral aspect of the anterior segment of the right middle lobe, close to the major fissure. No definite destructive osseous lesion identified. No pleural effusion, pneumothorax, consolidation, or groundglass lesion. No cardiomegaly or pericardial effusion. No mediastinal or hilar lymphadenopathy. There has been significant interval growth in size and number of hepatic metastases. For example, the previously described 3 cm mass in hepatic segment 8 of the right lobe abutting the c onfluence of the hepatic veins is now 5.3 x 3.1 x 3.9 cm, and is now confluent and inseparable from one of the adjacent small satellite metastatic lesions. (Axial image 44 of 115, series 3; coronal kta ge 49 of 113, series 602). The large mass occupying hepatic segments 5 and 6 of the right lobe previously measured as 6 cm, is n ow 8 x 6.1 cm (axial image 60 of 115, series 3). Craniocaudal dimension is difficult to measure now because it is inseparable from innumerable adjacent satellite metastases. Portal caval node of approximately 2 x 0.8 cm unchanged. No adrenal nodule. Minimal, tiny amount of free intraperitoneal fluid abuts far inferior edge of right lobe of liver. Ki dneys, spleen, and pancreas, are essentially normal. Atherosclerotic calcific aeration but no aneurysm of abdominal aorta. No small bowel dilation. Cystic and solid intrapelvic mass centered to the right of midline is currently approximately 4.5 x 4 .5 x 3.5 cm, not greatly changed. Small amount of free fluid within the pelvic cavity, similar to prior study. Normal thickness of urin sanjeev bladder ma. IMPRESSION: 1 ) significant interval worsening of hepatic metastatic disease. 2) right middle lobe pleural-based solitary pulmonary metastasis. 3) Cystic and solid intrapelvic mass is unchanged. 4.) Incidental finding of osteoblastic exophytic mass closely associated with proximal right fourth r ib and right T4 transverse process. Osteochondroma favored over osseous metastasis.
== END 2019-07-24 08:58 | disposition home or self-care (01) ==
LOC: SCSCT 08:57
PROVIDERS: ATTEND Internal Medicine Hematology & Oncology
DX: C18.3 Malignant neoplasm of hepatic flexure (principal); C78.7 Secondary malignant neoplasm of liver and intrahepatic bile duct; C78.00 Secondary malignant neoplasm of unspecified lung
CPT/HCPCS: 36415; 71260; 74177; 80053; 82248; 82378; 83615; 83735; 84100; 84550

== ENCOUNTER 2019-08-01 11:10 | Day surgery (SDC) | payer MEDICARE, OTHER ==
[2019-08-01] MEDS ORDERED: Acetaminophen 500 MG TAB PO PRN (11:36)
[2019-08-01] MEDS ORDERED: diphenhydrAMINE 25 MG CAP PO PRN (11:36)
[2019-08-01] MEDS ORDERED: Sodium Chloride 0.9% 20 ML ONE (11:52)
[2019-08-01 14:47] VITALS: BP 147/79; TEMP 98.2
== END 2019-08-01 14:48 | disposition home or self-care (01) ==
LOC: ONC/OP 11:10
PROVIDERS: ATTEND Internal Medicine Hematology & Oncology
PROC: 30233N1 Transfusion of Nonautologous Red Blood Cells into Peripheral Vein, Percutaneous Approach (ICD-10-PCS; principal; 2019-08-01)
DX: D64.9 Anemia, unspecified (principal); D69.6 Thrombocytopenia, unspecified
CPT/HCPCS: 36430; 80053; 82248; 83615; 83735; 84100; 84550; 86850; 86900; 86901; J1642; P9016; Q0163